=== PATIENT | female | born 1950 | race Caucasian/White ===

== ENCOUNTER 2017-12-31 11:01 | Outpatient (CLI) | payer MEDICARE, OTHER ==
--- NOTE | 2017-12-31 12:28 | RAD ---
CHEST TWO VIEWS: History: Dyspnea. Comparison: 12-03-16 FINDINGS: Cardiac silhouette and pulmonary vasculature are unremarkable. Mediastinum is midline with aortic yessenia cifications. Lungs are hyperinflated with flattening of each hemidiaphragm. No lobar consolidation, p neumothorax or pleural fluid. IMPRESSION: 1. COPD. Atherosclerosis. 2. Chronic type findings are stable. POS: TPC
== END 2017-12-31 11:02 | disposition home or self-care (01) ==
LOC: RAD 11:01
PROVIDERS: ATTEND Internal Medicine Critical Care Medicine
DX: R06.00 Dyspnea, unspecified (principal); J44.9 Chronic obstructive pulmonary disease, unspecified; I70.90 Unspecified atherosclerosis
CPT/HCPCS: 71046

== ENCOUNTER 2019-01-23 11:58 | Observation (INO) | payer MEDICARE, OTHER ==
[~2019-01-23 11:58] MED LIST: ISOVUE-370 76%-LOCM 1 ML ONE
[2019-01-23 12:31] LABS: #Basophils 0.1 thou/uL (0.0-0.2); #Eosinphils 0.1 thou/uL (0.0-0.7); #Lymphocytes 2.4 thou/uL (1.20-3.40); #Neutrophils 8.1 thou/uL (1.40-6.50); %Basophils 0.7 % (0.0-1.0); %Eosinophils 0.8 % (0.0-10.0); %Lymphocytes 20.4 % (21.0-51.0); %Monocytes 8.4 % (0.0-10.0); %Neutrophils 69.7 % (42.0-75.0); Hemoglobin 16.2 g/dL (12.0-16.0); Mean Corpuscular HGB CONC 33.2 g/dL (32.0-36.0); Mean Corpuscular Hemoglobin 31.9 pg (27.0-31.0); Mean Platelet Volume 7.5 fL (7.4-10.4); Platelet Count 263 thou/uL (130-400); RBC Distribution Width 12.1 % (11.5-14.5); Red Blood Cell (RBC) Count 5.08 mill/uL (4.20-5.40); White Blood Cell (WBC) Count 11.7 thou/uL (4.8-10.8)
--- NOTE | 2019-01-23 12:35 | RAD ---
Exam: Chest one view HISTORY:Pain. Comparison: 11/07/2016 FINDINGS: Cardiac silhouette:Normal. Aorta: Atherosclerosis Pulmonary vessels: Normal Costophrenic angles: Clear LUNGS: Inflation. Chronic changes. No mass or consolidation. Pneumothorax: None Osseous abnormalities: None IMPRESSION: 1. Atherosclerosis. 2. Hyperinflation. COPD. 3. No acute cardiopulmonary process.
[2019-01-23] MEDS ORDERED: Morphine 4 MG/ML VIAL ONE (12:45)
[2019-01-23] MEDS ORDERED: Mag-Al 1200 mg/1200 mg/30 ML UDCUP ONE (12:45)
[2019-01-23] MEDS ORDERED: Lidocaine Viscous Sol 2% 15 ml UD Cup ONE (12:45)
[2019-01-23 12:52] LABS: ALT (SGPT) 28 U/L (8-55); AST (SGOT) 33 U/L (5-34); Albumin 4.8 g/dL (3.4-4.8); Alkaline Phosphatase 85 U/L (40-150); Anion Gap 16 mmol/L (10-20); BUN (Urea Nitrogen) 12 mg/dL (9.8-20.1); Bilirubin, Total 0.5 mg/dL (0.2-1.2); Calc. Creatinine Clearance 0 mL/min (70-130); Calcium 10.4 mg/dL (7.8-10.44); Carbon Dioxide 26 mmol/L (23-31); Chloride 95 mmol/L (98-107); Estimated GFR-MDRD 75; Globulin 2.2 g/dL (2.4-3.5); Glucose 99 mg/dL (80-115); Lipase 27 U/L (8-78); Potassium 4.4 mmol/L (3.5-5.1); Sodium 133 mmol/L (136-145)
--- NOTE | 2019-01-23 13:34 | CT ---
Exam: CT ANGIOGRAM OF THE THORACIC AORTA CT ANGIOGRAM OF THE ABDOMINAL AORTA CHEST CT WITH CONTRAST ABDOMEN CT WITH CONTRAST: TECHNIQUE: CT angiogram of the thoracic and abdominal aorta performed in the axial plane. Three-dimensional refo rmatted images are submitted for interpretation. FINDINGS: CHEST CT: No mediastinal mass, lymphadenopathy or hematoma. Heart size is within normal limits. Adequate contra st opacification of the pulmonary arterial system to the level of the lobar arteries. No filling defect to suggest thromboembolism No axillary lymphadenopathy Trachea and central bronchi are patent Right lung: Extensive emphysematous change. Patchy groundglass opacities may represent edema or infil trate. Subsegmental atelectasis and scarring is noted in the lower lobe. Left lung: Extensive emphysematous change. Patchy groundglass opacities may represent infiltrate. Sub segmental atelectasis and scarring is noted in the lingula and left lower lobe. No significant pleural fluid or pneumothorax. ABDOMEN CT: Appropriate arterial phase enhancement of the solid organs. Unremarkable gallbladder No mass, lymphadenopathy or free air/free fluid in the visualized mesentery. Limited enhancement kidneys. No obstructive uropathy Visualized alimentary canal is unremarkable. There are few fluid-filled loops of small bowel in the l eft hemiabdomen which are nonspecific. Fluid-filled bowel loops are at the upper limits of diameter. Visualized appendix is unremarkable. There is atherosclerosis in the visualized thoracic and abdominal aorta. The aortic root, ascending t horacic aorta, aortic knob and descending thoracic aorta have an overall normal caliber. No aneurysm or dissection, or paraaortic fat stranding. Visualized origins of the carotid arteries, left subclavian artery are unremarkable. There is mild prominence of the suprarenal abdominal aorta measuring 2.7 x 2.6 cm. There is no signif icant stenosis at the origin of the celiac artery, superior mesenteric artery or either renal artery ostium. Inferior mesenteric artery is difficult to appreciate. There is evidence of a bypass, incompletely evaluated at the aortic bifurcation. The [place] lumens are still opacified with contrast and have atherosclerosis. The bypass is opacified with contrast. IMPRESSION: 1. No acute abnormality in the chest or abdomen. 2. No evidence of aneurysmal dilatation of the visualized aorta. Atherosclerosis is identified. 3. Incompletely evaluated bypass at the aortic bifurcation. Transcribed Date/Time: 01/23/2019 2:26 PM
[2019-01-23] MEDS ORDERED: Aspirin Chewable 81 MG TAB ONE (14:06)
--- NOTE | 2019-01-23 15:06 | HP ---
DISCHARGE DISPOSITION: Dr. Johann Castorena. REASON FOR ADMISSION: Acute epigastric abdominal pain. HISTORY OF PRESENT ILLNESS: A 68-year-old female who has underlying history of hypertension, COPD, hypothyroidism, and dyslipidemia, who presented to emergency room with a complaint of epigastric abdominal pain. The patient reports that this morning when she woke up, she was experiencing epigastric abdominal pain, which was radiating to back. It was intermittent in nature, lasting for a few seconds to a minute and subsided by itself. Her intensity of pain is about 8/10 in intensity. This was started this morning when she was drinking coffee. She is occasionally taking ibuprofen for her pain. She denies any vomiting, but she was feeling nauseous. She denies any diarrhea, melena, or hematochezia. She denies any shortness of breath, palpitation, or dizziness. In the emergency room, morphine helped her pain. She was given a trial of GI cocktail, that did not improve her symptoms. In the emergency room, CT dissection protocol was ordered, which was negative for any acute process. Her routine blood test is also unremarkable. Her lipase is also normal. She denies any chronic dyspepsia symptoms. She denies any UTI symptoms. She denies any fever or chills. She denies any unusual food ingestion. She denies any bloating or gaseous feeling. She denies any abdominal distention. She denies any COPD flare-up. REVIEW OF SYSTEMS: CONSTITUTIONAL: Negative for weight loss or gain, ability to conduct usual activities. SKIN: Negative for rash, itching. EYES: Negative for double vision, pain. ENT/MOUTH: Negative for nose bleeding, neck stiffness, pain, tenderness. CARDIOVASCULAR: Negative for palpitations, dyspnea on exertion, orthopnea. RESPIRATORY: Negative for shortness of breath, wheezing, cough, hemoptysis, fever or night sweats. GASTROINTESTINAL: Negative for poor appetite, abdominal pain, heartburn, nausea, vomiting, constipation, or diarrhea. GENITOURINARY: Negative for urgency, frequency, dysuria, nocturia. MUSCULOSKELETAL: Negative for pain, swelling. NEUROLOGIC/PSYCHIATRIC: Negative for anxiety, depression. ALLERGY/IMMUNOLOGIC: Negative for skin rash, bleeding tendency. Please see my HPI for pertinent positives and negatives. All other review of systems reviewed and negative except as mentioned in HPI. PAST MEDICAL HISTORY: 1. COPD. 2. Hypothyroidism. 3. Hypertension. 4. Dyslipidemia. 5. Coronary artery disease. 6. History of AAA. PAST SURGICAL HISTORY: 1. AAA repair in 2013. 2. Bilateral cataract surgery. 3. Breast mass removal on the left side. PAST PSYCHIATRIC HISTORY: Reviewed and negative. SOCIAL HISTORY: The patient is an ex-smoker, she quit smoking a few years ago. She drinks alcohol occasionally. She denies any other illicit drug abuse. FAMILY HISTORY: No family history of coronary artery disease, stroke, or cancer. ALLERGIES: NO KNOWN DRUG ALLERGIES. CURRENT HOME MEDICATIONS: 1. Levothyroxine 88 mcg p.o. daily. 2. Lisinopril 5 mg p.o. daily. 3. Metoprolol tartrate 25 mg p.o. daily. 4. Lipitor 80 mg p.o. nightly. 5. Vitamin C 500 mg p.o. daily. 6. Fosamax 70 mg weekly. 7. Ventolin nebulization as needed. 8. DuoNeb q.12 h. 9. Breo Ellipta inhalation daily. EMERGENCY ROOM COURSE: The patient is given a trial of a GI cocktail, morphine, and aspirin. PHYSICAL EXAMINATION: VITAL SIGNS: Currently, blood pressure 124/81, pulse 83, respiratory rate 17, temperature 97.7, and saturation 94% on room air. Weight 57 kg. GENERAL: The patient is currently alert and awake, in mild distress due to pain. HEAD: Normocephalic and atraumatic. EYES: Pupils round and reactive to light. Extraocular muscles intact. ENT: Oropharynx within normal limits. Moist mucous membranes. No oral lesion. No pharyngeal erythema. No exudate. NECK: Supple. No thyromegaly. No carotid bruit. No jugular venous distention. LUNGS: Clear to auscultation without any rhonchi or rales. CARDIAC: S1 and S2 regular without any murmur. No gallop. No rub. ABDOMEN: The patient does have epigastric tenderness. No peritoneal sign. No Gonzalez sign. No abdominal distention. Bowel sounds present. No organomegaly. No mass. BACK: Unremarkable. No CVA tenderness. EXTREMITIES: Upper extremities; passive movement of all joints is normal. Lower extremities; no edema, good distal pulsation. SKIN: No skin rash. HEMATOLOGICAL SYSTEM: No lymphadenopathy. NEUROLOGIC: Nonfocal examination. SIGNIFICANT LABORATORY DATA: EKG showing normal sinus rhythm, nonspecific ST-T changes. Chest x-ray showing COPD changes, no acute cardiopulmonary process. CT dissection protocol came back negative. CBC; WBC 11.7, hemoglobin 16.2, and platelets 263. less than 0.010. Lipase 27. BMP; sodium 133, potassium 4.4, chloride 95, carbon dioxide 26, BUN 12, creatinine 0.76, glucose 99, and calcium 10.4. LFT; protein 7.0, albumin 4.8, alkaline phosphatase 85, AST 33, and ALT 28. ASSESSMENT AND PLAN: 1. Acute epigastric abdominal pain. This patient has epigastric pain, recurrent, spasmodic in nature, radiating to back. Her lipase is normal. She has negative CT dissection protocol. She does not have any obvious Gonzalez sign. She does not have any chronic dyspepsia symptoms or chronic nonsteroidal anti-inflammatory drug abuse. At this point, differential diagnosis is gastritis, maybe early pancreatitis or biliary colic. Underlying acute coronary syndrome needs to be excluded, but less likely given negative cardiac enzymes and negative EKG. We will do serial cardiac enzymes x3. We will obtain a right upper quadrant ultrasound. We will repeat lipase tomorrow. We will repeat liver function test tomorrow. If the patient's pain does not improve by tomorrow, then we will consider GI consultation for upper endoscopic evaluation. We will control her pain with morphine p.r.n. basis. We will also try simethicone p.r.n. basis along with Protonix 40 mg p.o. daily. 2. Hypertension. Continue lisinopril 5 mg p.o. daily and metoprolol tartrate 25 mg p.o. daily. 3. Dyslipidemia. Continue Lipitor 80 mg p.o. nightly. 4. Hypothyroidism. Continue Synthroid 88 mcg p.o. daily. 5. History of osteoporosis. The patient will continue Fosamax after discharge. 6. Chronic obstructive pulmonary disease without any exacerbation. We will continue DuoNeb q.6 h. and Dulera 2-puff inhalation b.i.d. 7. History of abdominal aortic aneurysm, currently stable. 8. Deep venous thrombosis prophylaxis, not needed because we are expecting discharge in 24 hours. 9. Gastrointestinal prophylaxis. Protonix 40 mg p.o. daily. 10. Code status. The patient is full code. The patient does not have any surrogate decision maker. DISPOSITION PLAN: Based on clinical course, we will keep as observation status and we will monitor while in hospital. Plan of care discussed with the patient in detail. Job ID: [id number]
[2019-01-23 16:05] LABS: Troponin I 0.014 ng/mL (< 0.028)
[2019-01-23] MEDS ORDERED: Calcium Carbonate 500 MG ChewTAB PO PRN (16:10)
[2019-01-23] MEDS ORDERED: Loperamide HCl 2 MG CAP PO PRN (16:10)
[2019-01-23] MEDS ORDERED: HYDROcodone/Acetaminophen 10/325 mg Tablet PO PRN (16:10)
[2019-01-23] MEDS ORDERED: Bisacodyl 5 MG TAB PO PRN (16:10)
[2019-01-23] MEDS ORDERED: Bisacodyl 10 MG SUPP PR PRN (16:10)
[2019-01-23] MEDS ORDERED: Acetaminophen 325 MG TAB PO PRN (16:10)
[2019-01-23] MEDS ORDERED: Senokot S 8.6-50 MG TAB PO PRN (16:10)
[2019-01-23] MEDS ORDERED: Morphine 4 MG/ML VIAL SLOW IVP PRN (16:10)
[2019-01-23] MEDS ORDERED: Ondansetron PF 4 MG/2 ML Vial IVP PRN (16:10)
[2019-01-23] MEDS ORDERED: Simethicone Chewable 80 MG TAB PO PRN (16:10)
[2019-01-23] MEDS ORDERED: Dicyclomine 20 MG TAB PO PRN (16:10)
[2019-01-23] MEDS ORDERED: Zolpidem Tartrate 5 MG TAB PO PRN (16:10)
[2019-01-23 16:21] VITALS: BMI 23.8
--- NOTE | 2019-01-23 18:40 | ULT ---
US Gallbladder RUQ: 01/23/2019 4:10 PM CLINICAL HISTORY: Epigastric abdominal pain. STUDY: Limited right upper quadrant ultrasound of abdomen. COMPARISON: None. FINDINGS: Liver: Size: Normal. Echogenicity: Normal. Contour: Smooth. Mass: None. Bile ducts: No intrahepatic or extrahepatic biliary dilatation. Common bile duct measures 3 mm. Gallbladder: Normal. Pancreas: Not well visualized Right kidney: No pelvicalyceal dilatation. Right kidney measuring 9.1 cm in length. IMPRESSION: Unremarkable exam.
[2019-01-23] MEDS: Mometasone/Formoterol 120 PUFF INHALER INH SCH (19:29)
[2019-01-23 20:02] LABS: Troponin I Less than 0.010 ng/mL (< 0.028)
[2019-01-23] MEDS ORDERED: Atorvastatin Calcium 40 MG TAB PO SCH (21:00)
[2019-01-23] MEDS: Ondansetron ODT 4 MG TAB PO PRN (21:14)
[2019-01-24] MEDS ORDERED: Levothyroxine Sodium 88 MCG TAB PO SCH (06:00)
[2019-01-24] MEDS: Mometasone/Formoterol 120 PUFF INHALER INH SCH (06:48)
[2019-01-24 07:29] LABS: #Eosinphils 0.1 thou/uL (0.0-0.7); #Lymphocytes 1.7 thou/uL (1.20-3.40); #Monocytes 0.9 thou/uL (0.11-0.59); #Neutrophils 5.5 thou/uL (1.40-6.50); %Basophils 0.4 % (0.0-1.0); %Lymphocytes 20.5 % (21.0-51.0); %Monocytes 10.6 % (0.0-10.0); %Neutrophils 67.5 % (42.0-75.0); Hemoglobin 14.7 g/dL (12.0-16.0); Mean Corpuscular Hemoglobin 31.6 pg (27.0-31.0); Mean Corpuscular Volume 95.6 fL (78.0-98.0); Mean Platelet Volume 7.8 fL (7.4-10.4); Platelet Count 245 thou/uL (130-400); Red Blood Cell (RBC) Count 4.66 mill/uL (4.20-5.40); White Blood Cell (WBC) Count 8.2 thou/uL (4.8-10.8)
[2019-01-24 07:35] LABS: ALT (SGPT) 25 U/L (8-55); AST (SGOT) 26 U/L (5-34); Albumin 4.2 g/dL (3.4-4.8); Alkaline Phosphatase 63 U/L (40-150); Anion Gap 12 mmol/L (10-20); BUN (Urea Nitrogen) 9 mg/dL (9.8-20.1); Bilirubin, Total 0.6 mg/dL (0.2-1.2); Calc. Creatinine Clearance 67 mL/min (70-130); Calcium 9.4 mg/dL (7.8-10.44); Carbon Dioxide 27 mmol/L (23-31); Chloride 99 mmol/L (98-107); Estimated GFR-MDRD 80; Globulin 2.2 g/dL (2.4-3.5); Glucose 89 mg/dL (80-115); Lipase 22 U/L (8-78); Protein, Total 6.4 g/dL (6.0-8.3); Sodium 134 mmol/L (136-145)
[2019-01-24 08:13] VITALS: BP 137/63; TEMP 97.5
[2019-01-24] MEDS: Ondansetron ODT 4 MG TAB PO PRN (08:17)
[2019-01-24] MEDS ORDERED: Aspirin Chewable 81 MG TAB PO SCH (09:00)
[2019-01-24] MEDS ORDERED: Ascorbic Acid 500 mg Chewable Tablet PO SCH (09:00)
[2019-01-24] MEDS ORDERED: Lisinopril 5 MG TAB PO SCH (09:00)
[2019-01-24] MEDS ORDERED: Metoprolol Tartrate 25 MG TAB PO SCH (09:00)
--- NOTE | 2019-01-24 10:10 | PDOC.PN ---
- Subjective Encounter Start Date: 01/24/19 Encounter Start Time: 07:40 -: old records requested/rev pt has nausea, epigastric pain resolved, no dyspnea - Objective Resuscitation Status - Order Detail: 01/23/19 14:40 Resuscitation Status Routine Resuscitation Status: FULL: Full Resuscitation MAR Reviewed: Yes Vital Signs & Weight: Vital Signs (12 hours) Temp Pulse Resp BP Pulse Ox 01/24/19 08:17 80 01/24/19 07:42 97.5 F L 80 12 137/63 92 L 01/24/19 06:48 117 H 18 01/24/19 06:25 118 H 18 01/24/19 05:00 98.1 F 85 20 109/59 L 93 L 01/23/19 22:43 95 14 91 L Weight Weight 127 lb 9.6 oz I&O: 01/23/19 01/24/19 01/25/19 06:59 06:59 06:59 Intake Total 1160 Output Total 1200 Balance -40 Result Diagrams: 01/24/19 06:43 01/24/19 06:43 Radiology Reviewed by me: Yes (US abdomen is normal) EKG Reviewed by me: Yes (nsr) Phys Exam - Physical Examination Constitutional: NAD HEENT: PERRLA, moist MMs, sclera anicteric Neck: no JVD, supple Respiratory: no wheezing, no rales, no rhonchi Cardiovascular: RRR, no significant murmur, no rub Gastrointestinal: soft, non-tender, no distention, positive bowel sounds Musculoskeletal: no edema, pulses present Neurological: non-focal, normal sensation, moves all 4 limbs Lymphatic: no nodes Psychiatric: normal affect, A&O x 3 Skin: no rash, normal turgor Dx/Plan (1) Epigastric abdominal pain Code(s): R10.13 - EPIGASTRIC PAIN Status: Resolved (2) CAD (coronary artery disease) Code(s): I25.10 - ATHSCL HEART DISEASE OF [place] CORONARY ARTERY W/O ANG PCTRS Status: Chronic (3) Hypertension Code(s): I10 - ESSENTIAL (PRIMARY) HYPERTENSION Status: Chronic (4) Dyslipidemia Code(s): E78.5 - HYPERLIPIDEMIA, UNSPECIFIED Status: Chronic (5) COPD (chronic obstructive pulmonary disease) Status: Chronic - Plan cont current plan of care * medication reviewed as below * symptomatic treatment * stable for discharge later on today * see discharge toni. Review of Systems - Review of Systems ENT: negative: Ear Pain, Ear Discharge, Nose Pain, Nose Discharge, Nose Congestion, Mouth Pain, Mouth Swelling, Throat Pain, Throat Swelling, Other Respiratory: negative: Cough, Dry, Shortness of Breath, Hemoptysis, SOB with Excertion, Pleuritic Pain, Sputum, Wheezing Cardiovascular: negative: chest pain, palpitations, orthopnea, paroxysmal nocturnal dyspnea, edema, light headedness, other Gastrointestinal: Nausea. negative: Vomiting, Abdominal Pain, Diarrhea, Constipation, Melena, Hematochezia, Other Genitourinary: negative: Dysuria, Frequency, Incontinence, Hematuria, Retention , Other Musculoskeletal: negative: Neck Pain, Shoulder Pain, Arm Pain, Back Pain, Hand Pain, Leg Pain, Foot Pain, Other Skin: negative: Rash, Lesions, Braulio, Bruising, Other - Medications/Allergies Allergies/Adverse Reactions: Allergies Allergy/AdvReac Type Severity Reaction Status Date / Time No Known Allergies Allergy Verified 01/23/19 16:21 Medications: Current Medications Acetaminophen (Tylenol) 650 mg PO Q4H PRN PRN Reason: Headache/Fever/Mild Pain (1-3) Last Admin: 01/24/19 08:16 Dose: 650 mg Hydrocodone Bitart/Acetaminophen (Goddard 10/325) 1 tab PO Q4H PRN PRN Reason: Moderate Pain (4-6) Last Admin: 01/23/19 21:13 Dose: 1 tab Albuterol/Ipratropium (Duoneb) 3 ml NEB [id number] [facility] Last Admin: 01/24/19 06:25 Dose: 3 ml Ascorbic Acid (Vitamin C) 500 mg PO DAILY [facility] Last Admin: 01/24/19 08:16 Dose: 500 mg Aspirin (Aspirin Chewable) 81 mg PO DAILY [facility] Last Admin: 01/24/19 08:17 Dose: 81 mg Atorvastatin Calcium (Lipitor) 80 mg PO HS [facility] Last Admin: 01/23/19 21:13 Dose: 80 mg Bisacodyl (Dulcolax) 10 mg PO DAILYPRN PRN PRN Reason: Constipation Bisacodyl (Dulcolax) 10 mg DC DAILYPRN PRN PRN Reason: Constipation Calcium Carbonate (Tums) 1,000 mg PO Q4H PRN PRN Reason: Heartburn or Indigestion Dicyclomine HCl (Bentyl) 20 mg PO QID PRN PRN Reason: GI Cramping Levothyroxine Sodium (Synthroid) 88 mcg PO 0600 [facility] Last Admin: 01/24/19 05:10 Dose: 88 mcg Lisinopril (Zestril) 5 mg PO DAILY [facility] Last Admin: 01/24/19 08:17 Dose: 5 mg Loperamide HCl (Imodium) 2 mg PO PRN PRN PRN Reason: Diarrhea/Loose Stools Metoprolol Tartrate (Lopressor) 25 mg PO DAILY [facility] Last Admin: 01/24/19 08:17 Dose: 25 mg Mometasone Furoate/Formoterol Fumar (Dulera 200 Mcg/5 Mcg Inhaler) 2 puff INH BID-RT [facility] Last Admin: 01/24/19 06:48 Dose: 2 puff Morphine Sulfate (Morphine) 2 mg SLOW IVP Q2H PRN PRN Reason: Pain Last Admin: 01/23/19 16:49 Dose: 2 mg Ondansetron HCl (Zofran Odt) 4 mg PO Q6H PRN PRN Reason: Nausea/Vomiting Last Admin: 01/24/19 08:17 Dose: 4 mg Ondansetron HCl (Zofran) 4 mg IVP Q6H PRN PRN Reason: Nausea/Vomiting Pantoprazole Sodium (Protonix) 40 mg PO DAILY [facility] Last Admin: 01/24/19 08:17 Dose: 40 mg Senna/Docusate Sodium (Senokot S) 2 tab PO BID PRN PRN Reason: Constipation Simethicone (Mylicon Chewable) 80 mg PO PCHS PRN PRN Reason: Gas Pain Zolpidem Tartrate (Ambien) 5 mg PO HSPRN PRN PRN Reason: Insomnia
--- NOTE | 2019-01-24 11:54 | DIS ---
DATE OF ADMISSION: 01/23/2019 DATE OF DISCHARGE: 01/24/2019 PRIMARY CARE PHYSICIAN: Johann Castorena MD DISCHARGE DISPOSITION: Home. PRIMARY DISCHARGE DIAGNOSIS: Acute epigastric abdominal pain, improved. SECONDARY DISCHARGE DIAGNOSES: Coronary artery disease, chronic obstructive pulmonary disease, hypertension, and dyslipidemia. PRIMARY PROCEDURE/OPERATION: None. RADIOLOGICAL INVESTIGATION: Chest x-ray normal. CT dissection negative for any acute process. Abdominal ultrasound normal. SIGNIFICANT LABORATORY DATA: WBC 8.2, hemoglobin 14.7, and platelet 245. Sodium 134, creatinine 0.72. LFT normal. Cardiac enzyme negative. Lipase 22. DISCHARGE MEDICATIONS: 1. Ventolin inhaler q.4 hourly p.r.n. 2. Ventolin nebulization q.6 hourly. 3. Fosamax 70 mg every week. 4. Vitamin C 500 mg daily. 5. Lipitor 80 mg at bedtime. 6. Symbicort one puff inhalation b.i.d. 7. Multi mineral one tablet twice daily. 8. Vitamin D3 2000 units p.o. at bedtime. 9. Breo Ellipta one inhalation daily. 10. Atrovent HFA q.i.d. 11. Synthroid 88 mcg p.o. daily. 12. Lisinopril 5 mg daily. 13. Lopressor 25 mg daily. 14. Multivitamin one tablet p.o. daily. New medications: 1. Protonix 40 mg p.o. daily. 2. Simethicone 80 mg p.o. p.c. at bedtime. 3. Zofran 4 mg q.6 hourly p.r.n. 4. Bentyl 20 mg q.i.d. p.r.n. CONTRAINDICATION: None. CODE STATUS: Full code. INPATIENT CONSULT: None. ALLERGIES: NO KNOWN DRUG ALLERGIES. DISCHARGE PLAN: Post hospital, the patient will follow up with primary care physician and primary care physician will decide to give referral to nuclear physician if the patient has persistent symptoms. HOSPITAL COURSE: A 68-year-old female with above-mentioned medical problem, who was admitted by me. Please see my HPI for further details. She presented to emergency room with acute onset of epigastric abdominal pain, which was radiating to back. She was also feeling nausea, as this patient has previous history of AAA repair and that is why CT dissection protocol was done in the emergency room, which was negative for any acute process. The patient's all laboratory parameters were normal. She did not have any Gonzalez sign, but she was complaining of epigastric abdominal pain and that is why we did ultrasound gallbladder, which was normal. Her lipase is also normal. The patient does not have any clinically any alarming feature for upper endoscopy to be done. Her cardiac enzyme negative. Her telemetry remained unremarkable. At this point, with narcotic therapy, the patient's pain completely improved. Above-mentioned new medication prescribed for symptoms management and subsequently, she will follow up with primary care physician. The patient is seen and examined at bedside today. Please see my progress note from today for further detail. During this admission, we have ruled out pancreatic, gallbladder, cardiac, and vascular pathology for her abdominal pain, clinically suspecting maybe mild gastritis and that is why we are giving therapeutic trial and if the patient has persistent symptoms, then she can follow up with nuclear physician for upper endoscopic evaluation. At this point, she does not have any alarming feature to do upper endoscopy and the patient agreed with this plan as well. Job ID: [id number]
== END 2019-01-24 11:53 | disposition home or self-care (01) ==
LOC: ERS 11:58 → 2SW 16:04
PROVIDERS: ADMIT Internal Medicine; ATTEND Internal Medicine
DX: R10.13 Epigastric pain (principal); I10 Essential (primary) hypertension; J44.9 Chronic obstructive pulmonary disease, unspecified; E03.9 Hypothyroidism, unspecified; E78.5 Hyperlipidemia, unspecified; I25.10 Atherosclerotic heart disease of native coronary artery without angina pectoris; Z79.899 Other long term (current) drug therapy; Z87.891 Personal history of nicotine dependence
CPT/HCPCS: 71045; 71275; 76705; 80053 ×2; 83690 ×2; 84484 ×2; 85025 ×2; 93005; 94640 ×5; 96374; 96376; 99285; G0378 ×2; 36415; J2270; J7620; Q0162; Q9966

== ENCOUNTER 2019-03-30 09:03 | Outpatient (CLI) | payer MEDICARE, OTHER ==
--- NOTE | 2019-03-30 09:18 | RAD ---
EXAM: Chest 2 views: HISTORY: Dyspnea COMPARISON: 12/31/2017 FINDINGS: There is a normal-sized cardiomediastinal silhouette. Atherosclerotic calcifications are seen in the aorta. There is no evidence of consolidation, mass, or pleural effusion. The bones are unremarkable. IMPRESSION: No evidence of acute cardiopulmonary disease
== END 2019-03-30 09:04 | disposition home or self-care (01) ==
LOC: RAD 09:03
PROVIDERS: ATTEND Internal Medicine Critical Care Medicine
DX: R06.00 Dyspnea, unspecified (principal)
CPT/HCPCS: 71046

== ENCOUNTER 2019-08-31 07:57 | Inpatient (IN) | payer MEDICARE, OTHER ==
[2019-08-31] MEDS ORDERED: methylPREDNISolone Sod Succ/PF 125 MG/2 ML VIAL ONE (08:29)
[2019-08-31] MEDS ORDERED: Azithromycin 500 MG VIAL ONE (08:29)
[2019-08-31] MEDS ORDERED: cefTRIAXone\\ROCEPHIN 2 GM VIAL ONE (08:29)
[2019-08-31] MEDS ORDERED: Morphine 4 MG/ML VIAL ONE (08:29)
[2019-08-31 08:39] LABS: Hemoglobin 15.7 g/dL (12.0-16.0); Mean Corpuscular HGB CONC 33.4 g/dL (32.0-36.0); Mean Corpuscular Hemoglobin 31.8 pg (27.0-31.0); Mean Corpuscular Volume 95.3 fL (78.0-98.0); Platelet Count 219 thou/uL (130-400); RBC Distribution Width 12.5 % (11.5-14.5); Red Blood Cell (RBC) Count 4.92 mill/uL (4.20-5.40); White Blood Cell (WBC) Count 25.9 thou/uL (4.8-10.8)
[2019-08-31 09:00] LABS: ALT (SGPT) 25 U/L (8-55); AST (SGOT) 30 U/L (5-34); Alkaline Phosphatase 69 U/L (40-110); Anion Gap 17 mmol/L (10-20); BUN (Urea Nitrogen) 10 mg/dL (9.8-20.1); Bilirubin, Total 0.9 mg/dL (0.2-1.2); Calc. Creatinine Clearance 0 mL/min (70-130); Carbon Dioxide 21 mmol/L (23-31); Chloride 103 mmol/L (98-107); Estimated GFR-MDRD 78; Glucose 118 mg/dL (80-115); Potassium 4.5 mmol/L (3.5-5.1); Sodium 136 mmol/L (136-145)
--- NOTE | 2019-08-31 09:01 | RAD ---
PORTABLE CHEST: HISTORY: Cough. COMPARISON: An 03/30/2019 study. FINDINGS: Heart size is within normal limits. There are atherosclerotic changes of the aorta. There is a pneu kim-appearing infiltrate in the right lung base. IMPRESSION: 1. Chronic obstructive pulmonary disease changes. 2. Infiltrative changes in the right lung base. POS: TPC
[2019-08-31] MEDS ORDERED: Aspirin Chewable 81 MG TAB ONE (09:24)
[2019-08-31] MEDS ORDERED: Fentanyl 100 MCG/2 ML VIAL ONE (09:39)
[2019-08-31 09:41] LABS: Band 29 % (5-11); Eosinophils 1 % (0-10); Lymphocytes 8 % (21-51); MDiff Complete? YES; Monocytes 4 % (0-10); Neutrophil 58 % (42-75); Platelet Morphology Comment Appears Adequate; Polychromasia SLIGHT = 2-3 cells (100X) (0-2/hpf); Reflex for Review?? NO; Vacuoles MODERATE
--- NOTE | 2019-08-31 10:39 | CT ---
CT PULMONARY ANGIOGRAM WITH IV CONTRAST AND 3D POST PROCESSING: HISTORY: Chest pain, shortness of breath. FINDINGS: There is good contrast opacification of the pulmonary arterial vasculature without filling defects to suggest pulmonary embolism. The thoracic aorta is well opacified. Vascular calcifications are pres ent. No evidence of thoracic aortic aneurysm or dissection. No pleural or pericardial effusions are identified. There is peripheral consolidation in the right l ower lobe. Degenerative changes are present in the spine. IMPRESSION: 1. No CT evidence of pulmonary embolism. 2. Findings suspicious for right lower lobe pneumonia. POS: OFF
[2019-08-31 11:10] LABS: Bilirubin Negative (Negative); Blood, Urine Negative (Negative); Clarity Clear (Clear); Glucose, Urine (Dipstick) Normal (Negative); Leukocyte Negative Leu/uL (Negative); Nitrite Negative (Negative); Protein, Urine (Dipstick) 10 mg/dL (Neg-Trace); Urobilinogen Normal mg/dL (Less than 2)
[2019-08-31 11:27] LABS: Troponin I 0.014 ng/mL (< 0.028)
[2019-08-31 11:30] LABS: Actual Bicarbonate (HCO3a) 19.6 mEq/L (22-28); Analyzer IN Cardio ER; Base Excess (BEa) -4.8 mEq/L (-2.0 to +3.0); CO2 Tension 34.5 mmHg (35.0-45.0); Calcium, Ionized 1.05 mmol/L (1.12-1.30); Carboxyhemoglobin (COHb) 0.5 gm% (0.0-3.0); Hemoglobin (Hb) 14.2 g/dL (12.0-16.0); O2 Tension (PaO2) 78.3 mmHg (> 70.0); Potassium - ABG Lab 3.66 mmol/L (3.70-5.30); pH, Arterial 7.37 (7.35-7.45)
[2019-08-31 11:32] LABS: Puncture Site LBA
[2019-08-31 11:35] LABS: ALV-art Gradient 78.215 (0-20)
[2019-08-31] MEDS ORDERED: Albuterol Sulfate 2.5 mg/3 ml Neb ONE ×2 (11:37→11:45)
[2019-08-31] MEDS ORDERED: Loratadine 10 MG TAB PO PRN (14:04)
[2019-08-31] MEDS ORDERED: Bisacodyl 10 MG SUPP PR PRN (14:04)
[2019-08-31] MEDS ORDERED: hydrALAZINE 20 MG/ML VIAL SLOW IVP PRN (14:04)
[2019-08-31] MEDS ORDERED: Benzonatate 100 MG CAP PO PRN (14:04)
[2019-08-31] MEDS ORDERED: Artificial Tears 18 DROP/0.9 ML EA EYE PRN (14:04)
[2019-08-31] MEDS ORDERED: Loperamide HCl 2 MG CAP PO PRN (14:04)
[2019-08-31] MEDS ORDERED: Metoclopramide HCl 10 MG/2 ML VIAL IVP PRN (14:04)
[2019-08-31] MEDS ORDERED: Senokot S 8.6-50 MG TAB PO PRN (14:04)
--- NOTE | 2019-08-31 14:46 | HP ---
PRIMARY CARE PHYSICIAN: Dr. Johann Castorena. REASON FOR ADMISSION: Acute respiratory failure with hypoxia, right lower lobe pneumonia, COPD exacerbation, sepsis. HISTORY OF PRESENT ILLNESS: A 69-year-old female, who has underlying history of COPD, who presented to emergency room with increasing shortness of breath. The patient reports that she has chronic shortness of breath. The patient does not require any oxygen at home. The patient reports that her COPD is well controlled with her home nebulizer therapy and inhalers. The patient is following Dr. Mcneil as an outpatient basis. The patient was fine up until yesterday and when symptoms started with chills, nausea, and increasing shortness of breath. The patient was having pleuritic chest pain on the right side. Whenever she was taking deep breaths, she was hurting in her right side of the chest and she was having cough productive of yellowish white sputum. She denies any hemoptysis. She denies any recent travel or sick exposure. She denies any flu-like illness. When the patient came to emergency room, she was hypoxic, tachypneic, and tachycardic and routine blood test showed leukocytosis with left shift. The patient was meeting sepsis criteria. The patient was requiring BiPAP to maintain saturation. Her chest x-ray was consistent with pneumonia. CT angiography was negative for PE. Subsequently, we decided to keep this patient in the hospital in [facility] for close monitoring. The patient denies any diarrhea, constipation, melena, or hematochezia. She denies any chest pain on exertion, palpitation or syncope. EMERGENCY ROOM COURSE: The patient was treated with albuterol nebulization, DuoNeb nebulization, fentanyl 25 mcg, aspirin 162 mg, azithromycin 500 mg, morphine 4 mg, Solu-Medrol 125 mg, Rocephin 2 g and two times DuoNeb therapy as well and IV fluid. REVIEW OF SYSTEMS: CONSTITUTIONAL: Negative for weight loss or gain, ability to conduct usual activities. SKIN: Negative for rash, itching. EYES: Negative for double vision, pain. ENT/MOUTH: Negative for nose bleeding, neck stiffness, pain, tenderness. CARDIOVASCULAR: Negative for palpitations, dyspnea on exertion, orthopnea. RESPIRATORY: Negative for shortness of breath, wheezing, cough, hemoptysis, fever or night sweats. GASTROINTESTINAL: Negative for poor appetite, abdominal pain, heartburn, nausea, vomiting, constipation, or diarrhea. GENITOURINARY: Negative for urgency, frequency, dysuria, nocturia. MUSCULOSKELETAL: Negative for pain, swelling. NEUROLOGIC/PSYCHIATRIC: Negative for anxiety, depression. ALLERGY/IMMUNOLOGIC: Negative for skin rash, bleeding tendency. Please see my HPI for pertinent positives and negatives. All other review of systems reviewed and negative except as mentioned in HPI. PAST MEDICAL HISTORY: Hypertension, dyslipidemia, hypothyroidism, COPD, coronary artery disease, history of AAA. PAST SURGICAL HISTORY: Bilateral cataract surgery, breast mass removal on the left side, AAA repair in 2013. PAST PSYCHIATRIC HISTORY: Reviewed and negative. SOCIAL HISTORY: The patient is ex-smoker. She quit smoking few years ago. She drinks alcohol occasionally. She denies any other illicit drug abuse. FAMILY HISTORY: No strong family history of premature coronary artery disease, stroke, or cancer. ALLERGIES: NO KNOWN DRUG ALLERGY. CURRENT HOME MEDICATION: 1. Levothyroxine 88 mcg p.o. daily. 2. Lisinopril 5 mg daily. 3. Metoprolol 25 mg daily. 4. Lipitor 80 mg daily. 5. Vitamin C 500 mg p.o. daily. 6. Fosamax 70 mg every week. 7. Ventolin inhaler as needed. 8. DuoNeb q.6h hourly as needed. 9. Breo Ellipta inhalation daily. FAMILY HISTORY: No strong family history of premature coronary artery disease, stroke, or cancer. ALLERGIES: NO KNOWN DRUG ALLERGIES. PHYSICAL EXAMINATION: VITAL SIGNS: On arrival, blood pressure 137/63, pulse 128, respiratory rate 27, temperature 98, saturation 85% on room air. Weight 55.7 kg. GENERAL: The patient is currently alert, awake, no obvious acute distress. HEENT: Head; normocephalic, atraumatic. Eyes; pupils round, reactive to light. Extraocular muscle intact. ENT, oropharynx within normal limits. Moist mucous membranes. No oral lesion. No pharyngeal erythema. No exudate. NECK: Supple. No JVD. No meningeal signs of irritation. LUNGS: Bilateral end-expiratory wheezing heard. Right lower lobe rales noted. Tachypnea noted. No accessory muscles of respiration in use. CARDIAC: S1, S2 regular. Tachycardia. No murmur. No gallop. No rub. ABDOMEN: Soft, bowel sounds present, nontender, nondistended. No organomegaly. No mass. No suprapubic tenderness. BACK: Unremarkable. No CVA tenderness. EXTREMITIES: Upper extremities, passive movement of all joints are normal. Lower extremity, no edema. Good distal pulsation. No calf tenderness. SKIN: No skin rash. HEMATOLOGIC: No lymphadenopathy. PSYCHIATRIC: Normal affect. NEUROLOGIC: Nonfocal examination. SIGNIFICANT LABORATORY DATA: CBC; WBC 25.9, hemoglobin 15.7, platelet 219 with bandemia. ABGs; pH 7.37, CO2 of 34.5, bicarb 19.6, O2 of 78.3, saturation 95.1. BMP: Sodium 136, potassium 4.5, chloride 103, carbon dioxide 21, BUN 10, creatinine 0.74, glucose 118, calcium 9.0 LFT: AST 30, ALT 25, alkaline phosphatase 69, albumin 4.0: BNP 75.6. Troponin negative x2. Lactic acid 2.2. Urinalysis unremarkable. CT angiography, negative for PE, but findings consistent with right lower lobe pneumonia. Chest x-ray consistent with COPD changes, infiltrative changes in right lung base. EKG showing sinus tachycardia, nonspecific ST-T changes. ASSESSMENT AND PLAN: Impression: 1. Acute respiratory failure with hypoxia. 2. Sepsis with acute organ dysfunction. 3. Right lower lobe pneumonia, suspected from streptococcus. 4. Chronic obstructive pulmonary disease exacerbation. 5. Hypertension. 6. Dyslipidemia. 7. Hypothyroidism. 8. Osteoporosis. PLAN: The patient will require IMCU admission, the patient will need BiPAP and we will try to wean off BiPAP as tolerated, the patient has underlying COPD exacerbation and that is why we will continue with Solu-Medrol 40 mg IV q.6 hourly, we will continue with broad-spectrum antibiotic therapy, Mucinex 600 mg twice daily. Pulmonary group will be consulted. We will continue gentle IV fluid with NS at 75 mL/h. We will continue cefepime and azithromycin. Dulera two puff inhalation b.i.d. The patient's home medication will be reconciled. We will repeat labs tomorrow. DVT prophylaxis, Lovenox 40 mg subcu daily. GI prophylaxis, Pepcid 20 mg p.o. or IV b.i.d. CODE STATUS: The patient is full code. DISPOSITION PLAN: Based on clinical course, we are expecting the patient's stay in hospital more than 2 midnights. Plan of care discussed with the patient in detail in the emergency room. Job ID: [id number]
[2019-08-31] MEDS ORDERED: Magnesium 2 GM/50 ML 2 GM in Premix Bag 1 BAG IVPB SCH (15:15)
[2019-08-31 15:42] LABS: Troponin I 0.012 ng/mL (< 0.028)
[2019-08-31] MEDS: Morphine 4 MG/ML VIAL SLOW IVP PRN ×2 (15:50→21:13)
[2019-08-31] MEDS: Sodium Chloride 0.9% 1,000 ML IV SCH (15:50)
[2019-08-31] MEDS ORDERED: Iopamidol-370 76% 500 ML 1 ML ONE (16:12)
[2019-08-31] MEDS: methylPREDNISolone Sod Succ 40 MG VIAL IVP SCH (18:18)
[2019-08-31] MEDS: Mometasone/Formoterol 120 PUFF INHALER INH SCH (18:53)
[2019-08-31] MEDS: guaiFENesin ER 600 MG TAB PO SCH (21:12)
[2019-08-31] MEDS: Cefepime 2 GM in Sodium Chloride 0.9% 100 ML IVPB SCH (21:12)
[2019-08-31] MEDS: Famotidine 20 MG TAB PO SCH (21:13)
[2019-08-31] MEDS ORDERED: methylPREDNISolone Sod Succ 40 MG VIAL IVP SCH (22:00)
[2019-08-31] MEDS: Famotidine/PF 20 mg/2ml Vial SLOW IVP SCH (22:41)
[2019-09-01] MEDS: methylPREDNISolone Sod Succ 40 MG VIAL IVP SCH ×4 (00:36→17:18)
--- NOTE | 2019-09-01 01:45 | CON ---
DATE OF CONSULTATION: 08/31/2019 HISTORY OF PRESENT ILLNESS: Ms. Sidhu is a pleasant 69-year-old female, followed for years in my clinic. She has underlying chronic obstructive pulmonary disease. She actually had a surprisingly acute onset of respiratory distress combined with some nausea and chills yesterday. She developed severe pleurisy. She subsequently presented to the hospital and was admitted with a diagnosis of pneumonia. PAST MEDICAL HISTORY: Remarkable for: 1. Chronic obstructive pulmonary disease. 2. She was last hospitalized here in January of this year with abdominal discomfort. 3. History of coronary artery disease. 4. History of hypertension. 5. History of lipid disorder. 6. History of PFT showing a best FEV1 of 590 mL in 2017. FAMILY HISTORY: Negative for lung disease in early age. SOCIAL HISTORY: She is not smoking. She is not a daily drinker. REVIEW OF SYSTEMS: Ten point review of systems completed, otherwise negative. She says she is feeling a little bit better, but she is still short of breath. I have explained to her that she can go on and off her BiPAP. If she starts getting a little tired, wants to go to sleep and she can put her BiPAP back on. She wanted to get off when I was in the room and she did okay from a work of breathing standpoint with just 2 L nasal cannula. PHYSICAL EXAMINATION: VITAL SIGNS: She is afebrile. Heart rates in the 90s, blood pressure is 124/ 79. HEENT: Pupils are equal. Sclerae are anicteric. NECK: Supple. No lymphadenopathy. LUNGS: Remarkable for diffuse wheezes. HEART: Regular rhythm. S1 and S2 are normal. ABDOMEN: Soft and nontender. EXTREMITIES: Without clubbing, cyanosis, or edema. NEUROLOGICAL: Grossly nonfocal. LABORATORY DATA: White count 25.9, hemoglobin 15.7, and 29% bands on her peripheral smear. Sodium 136, potassium 4.5, chloride 103, bicarb 21, BUN 10, creatinine 0.7. PH 7.37, CO2 34, PO2 78. Chest x-ray shows right lower lobe alveolar infiltrate , right where she has her pleuritic chest discomfort. IMPRESSION: 1. Pneumonia. 2. Underlying very severe chronic obstructive pulmonary disease. She is doing reasonably well at this point time, but she needs to remain in the intermediate care unit. There is no clear indication for intubation or ventilatory support, but BiPAP intermittently may be helpful until she starts feeling better. We will increase frequency of her nebulizer treatments. TIME SPENT: This is a 70-minute consult, with greater than 50% of the time spent on the unit coordinating care. Job ID: [id number] MTDD
[2019-09-01] MEDS: Sodium Chloride 0.9% 1,000 ML IV SCH ×2 (03:37→17:16)
[2019-09-01 03:41] LABS: #Lymphocytes 0.5 thou/uL (1.20-3.40); #Monocytes 0.3 thou/uL (0.11-0.59); #Neutrophils 15.7 thou/uL (1.40-6.50); %Basophils 0.2 % (0.0-1.0); %Eosinophils 0.1 % (0.0-10.0); %Lymphocytes 3.1 % (21.0-51.0); %Neutrophils 94.7 % (42.0-75.0); Hemoglobin 12.7 g/dL (12.0-16.0); Mean Corpuscular HGB CONC 33.4 g/dL (32.0-36.0); Mean Corpuscular Hemoglobin 31.5 pg (27.0-31.0); Mean Corpuscular Volume 94.4 fL (78.0-98.0); Mean Platelet Volume 7.6 fL (7.4-10.4); Platelet Count 177 thou/uL (130-400); RBC Distribution Width 12.3 % (11.5-14.5); Red Blood Cell (RBC) Count 4.01 mill/uL (4.20-5.40); White Blood Cell (WBC) Count 16.6 thou/uL (4.8-10.8)
[2019-09-01 04:20] LABS: ALT (SGPT) 18 U/L (8-55); AST (SGOT) 15 U/L (5-34); Albumin 3.4 g/dL (3.4-4.8); Alkaline Phosphatase 61 U/L (40-110); Anion Gap 9 mmol/L (10-20); BUN (Urea Nitrogen) 7 mg/dL (9.8-20.1); Bilirubin, Total 0.2 mg/dL (0.2-1.2); Calc. Creatinine Clearance 78 mL/min (70-130); Calcium 7.8 mg/dL (7.8-10.44); Carbon Dioxide 23 mmol/L (23-31); Chloride 107 mmol/L (98-107); Estimated GFR-MDRD Greater than 90; Globulin 2.3 g/dL (2.4-3.5); Glucose 170 mg/dL (80-115); Potassium 3.7 mmol/L (3.5-5.1); Protein, Total 5.7 g/dL (6.0-8.3); Sodium 135 mmol/L (136-145)
[2019-09-01] MEDS: Levothyroxine Sodium 88 MCG TAB PO SCH (06:16)
[2019-09-01] MEDS: Mometasone/Formoterol 120 PUFF INHALER INH SCH ×2 (07:08→19:53)
[2019-09-01] MEDS: Famotidine/PF 20 mg/2ml Vial SLOW IVP SCH ×2 (08:11→22:16)
[2019-09-01] MEDS: Enoxaparin Sodium 40 MG/0.4 ML SYRINGE SC SCH (08:11)
[2019-09-01] MEDS: Cefepime 2 GM in Sodium Chloride 0.9% 100 ML IVPB SCH ×2 (08:11→21:38)
[2019-09-01] MEDS: guaiFENesin ER 600 MG TAB PO SCH ×2 (08:12→21:38)
[2019-09-01] MEDS: Famotidine 20 MG TAB PO SCH ×2 (08:12→21:38)
--- NOTE | 2019-09-01 09:40 | PRG ---
DATE OF SERVICE: 09/01/2019 SUBJECTIVE: The patient is seen and examined at the bedside. She has some nausea this morning. She received antiemetic/antinausea medications. She feels better. She denies any abdominal pain or diarrhea or constipation. OBJECTIVE: VITAL SIGNS: Blood pressure is 145/76, pulse is 99, respiratory rate is 27, and O2 saturation is 100% on O2. HEENT: Her head is atraumatic and normocephalic. Eyes are PERRLA. Sclerae are nonicteric. Oral mucosa is slightly dry. NECK: Supple. LUNGS: Right base with some mild wheezes and mild rales. HEART: S1 and S2 normal. No S3. No S4. ABDOMEN: Soft, nontender, and nondistended. Bowel sounds are present. No organomegaly. EXTREMITIES: No clubbing, cyanosis, or edema. NEUROLOGICAL: She follows my commands. She moves all 4 extremities. There are no any motor or sensory deficits. LABORATORY DATA: Labs showed white count of 16.6, hemoglobin of 12.7, hematocrit is 37.9, and platelet count is 177,000. Sodium of 135, potassium 3.3, chloride 107, CO2 of 23, BUN of 7, creatinine of 0.58, glucose 170, total protein 5.7, globulin 2.3 and the rest of chemistry within normal limits. Microbiology; two blood cultures, one urine culture negative at 24 hours. IMPRESSION: 1. Right lower lobe pneumonia. 2. Severe chronic obstructive pulmonary disease. 3. Hypertension. 4. Dyslipidemia. 5. Hypothyroidism. 6. Osteoporosis. 7. Acute respiratory failure with hypoxia. PLAN: To continue her current regimen with antibiotics, DuoNeb, IV steroids, and start her on probiotics and use p.r.n. antiemetic/antinausea medications. She will remain in IMCU until she is cleared by television news producer. Job ID: [id number]
[2019-09-01] MEDS ORDERED: Saccharomyces boulardii 250 MG CAP PO SCH (10:00)
[2019-09-01] MEDS ORDERED: Lisinopril 5 MG TAB PO SCH (10:00)
[2019-09-01] MEDS: Azithromycin 500 MG in Sodium Chloride 0.9% 250 ML 250 ML IVPB SCH (11:43)
[2019-09-01] MEDS: HYDROcodone/Acetaminophen 5/325 mg Tablet PO PRN (14:08)
--- NOTE | 2019-09-01 20:14 | PRG ---
DATE OF SERVICE: 09/01/2019 SUBJECTIVE: Ashley Sidhu says she is feeling better, although she is nowhere near her baseline. OBJECTIVE: VITAL SIGNS: She is afebrile. Heart rate is in the 90s, respiratory rates in the teens, oximetry is 100% on 2 L. LUNGS: Remarkable for distant wheezes diffusely. HEART: Regular rhythm. ABDOMEN: Soft. EXTREMITIES: Without asymmetry or edema. NEUROLOGICAL: Nonfocal. LABORATORY DATA: White count 16.6, hemoglobin 12.7, platelets 177. Sodium 135, potassium 3.7, chloride 107, bicarb 23, BUN 7, and creatinine 0.58. IMPRESSION: Severe underlying chronic obstructive pulmonary disease with chronic obstructive pulmonary disease exacerbation, likely triggered by her pneumonia. Overall, she is slowly improving. We will continue to follow. Job ID: [id number]
[2019-09-02] MEDS: methylPREDNISolone Sod Succ 40 MG VIAL IVP SCH ×4 (00:32→18:00)
[2019-09-02] MEDS: Diabetic Tussin 200 MG/10 ML UDCUP PO PRN (02:43)
[2019-09-02] MEDS: Sodium Chloride 0.9% 1,000 ML IV SCH (06:07)
[2019-09-02] MEDS: Levothyroxine Sodium 88 MCG TAB PO SCH (06:07)
[2019-09-02 06:39] VITALS: BMI 19.8
[2019-09-02] MEDS ORDERED: Bacteriostatic Water 30 ML VIAL FS PRN (06:46)
[2019-09-02] MEDS: Mometasone/Formoterol 120 PUFF INHALER INH SCH ×2 (07:33→19:27)
[2019-09-02] MEDS: Azithromycin 500 MG in Sodium Chloride 0.9% 250 ML 250 ML IVPB SCH (08:47)
[2019-09-02] MEDS: Saccharomyces boulardii 250 MG CAP PO SCH (08:48)
[2019-09-02] MEDS: Famotidine 20 MG TAB PO SCH ×2 (08:48→20:24)
[2019-09-02] MEDS: Enoxaparin Sodium 40 MG/0.4 ML SYRINGE SC SCH (08:48)
[2019-09-02] MEDS: Cefdinir 300 MG CAP PO SCH ×2 (08:48→20:24)
[2019-09-02] MEDS: Lisinopril 5 MG TAB PO SCH (08:49)
[2019-09-02] MEDS: guaiFENesin ER 600 MG TAB PO SCH ×2 (08:53→20:24)
--- NOTE | 2019-09-02 14:04 | PRG ---
DATE OF SERVICE: 09/02/2019 SUBJECTIVE: The patient is seen and examined at the bedside. She gets very tachycardic when she gets up and walks to the bathroom. Her heart rate goes up to 130s. At rest, she is 115 to 120s almost. Her appetite is so-so. OBJECTIVE: VITAL SIGNS: Blood pressure is 152/86, pulse is 107, respiratory rate is 29, O2 saturation 96% on O2. HEENT: Her head is atraumatic and normocephalic. Eyes are PERRLA. Sclerae are nonicteric. LUNGS: Emphysematous with some wheezes at both bases. HEART: S1 and S2 normal. No S3. No S4. Tachycardic. ABDOMEN: Soft, nontender, and nondistended. EXTREMITIES: No clubbing, cyanosis, or edema. NEUROLOGIC: She is alert and oriented x4. There are no any motor or sensory deficits. LABORATORY DATA: Labs, pending. Microbiology; no growth, blood and urine. IMPRESSION: 1. Acute exacerbation of chronic obstructive pulmonary disease, severe. 2. Pneumonia in the right lower lobe. 3. Hypertension. 4. Dyslipidemia. 5. Hypothyroidism. 6. Osteoporosis. 7. Acute respiratory failure with hypoxia secondary to #1 and #2. PLAN: Plan is to continue her on current regimen with DuoNeb, antibiotics, IV steroids, and probiotics. She is still in quite poor shape. She is tachycardic even at rest. She needs to stay in IMCU until she gets better before she can be transferred. Job ID: [id number]
[2019-09-02] MEDS: HYDROcodone/Acetaminophen 5/325 mg Tablet PO PRN (16:02)
[2019-09-02] MEDS: Sodium Chloride 0.65% Nasal 44 ML BOT EA NARE PRN (16:04)
[2019-09-02] MEDS: Benzonatate 100 MG CAP PO SCH ×2 (16:04→20:23)
[2019-09-02] MEDS: Cepastat Lozenges 1 LOZ PO PRN (16:07)
[2019-09-02] MEDS ORDERED: Benzonatate 100 MG CAP PO SCH (16:15)
--- NOTE | 2019-09-02 19:54 | PRG ---
DATE OF SERVICE: 09/02/2019 SUBJECTIVE: Ashley Sidhu says she is feeling better. She is still quite short of breath. OBJECTIVE: VITAL SIGNS: She is afebrile. Heart rate is 108, respiratory rate in the 20s, oximetry is 95% on 2 L, and blood pressure is 137/77 at 5 o'clock. LUNGS: Remarkable for diffuse wheezes. HEART: Regular rhythm. ABDOMEN: Soft. EXTREMITIES: Without edema. LABORATORY DATA: There is no new lab today. IMPRESSION: Pneumonia with chronic obstructive pulmonary disease exacerbation. PLAN: Continue current care. She is stable to move out of a monitor bed in my opinion. Job ID: [id number]
[2019-09-02] MEDS: guaiFENesin/Codeine Phosphate 200 mg/20 mg 10 ml UD Cup PO PRN (20:24)
[2019-09-03] MEDS: methylPREDNISolone Sod Succ 40 MG VIAL IVP SCH ×4 (00:23→20:41)
[2019-09-03] MEDS: Levothyroxine Sodium 88 MCG TAB PO SCH (06:07)
[2019-09-03] MEDS: Azithromycin 500 MG in Sodium Chloride 0.9% 250 ML 250 ML IVPB SCH (09:18)
[2019-09-03] MEDS: Mometasone/Formoterol 120 PUFF INHALER INH SCH ×2 (09:20→19:40)
[2019-09-03] MEDS: Enoxaparin Sodium 40 MG/0.4 ML SYRINGE SC SCH (09:33)
[2019-09-03] MEDS: Cefdinir 300 MG CAP PO SCH ×2 (09:33→20:41)
[2019-09-03] MEDS: Lisinopril 5 MG TAB PO SCH (09:33)
[2019-09-03] MEDS: Benzonatate 100 MG CAP PO SCH ×3 (09:33→20:40)
[2019-09-03] MEDS: Saccharomyces boulardii 250 MG CAP PO SCH (09:33)
[2019-09-03] MEDS: Famotidine 20 MG TAB PO SCH ×2 (09:33→20:41)
[2019-09-03] MEDS: guaiFENesin ER 600 MG TAB PO SCH ×2 (09:33→20:41)
--- NOTE | 2019-09-03 09:55 | PRG ---
DATE OF SERVICE: 09/03/2019 SUBJECTIVE: Ms. Sidhu states she is feeling a little bit better. She did feel well enough to go home. I have explained to her she will likely be in the hospital at least till Friday. OBJECTIVE: VITAL SIGNS: She is afebrile. Heart rate is 101, respiratory rate is 20, oximetry is 93% on 2 L, blood pressure 130/65. LUNGS: Remarkable for diffuse wheezes. These are improved compared to a few days ago, but are about the same as yesterday. HEART: Regular rhythm. ABDOMEN: Soft. LABORATORY DATA: No new lab. IMPRESSION: 1. Chronic obstructive pulmonary disease exacerbation. 2. Pneumonia. PLAN: I encouraged her to increase her activity. She could not sleep last night. She says Gengo works at home, so we will put Benadryl on her OCT. Hopefully, she will get some sleep with this. We will continue to follow. Job ID: [id number]
[2019-09-03] MEDS ORDERED: Amiodarone 450 MG, Admixture Fee 1 EACH in Dextrose 5% in Water 250 ML IVPB SCH (10:45)
[2019-09-03] MEDS: Diabetic Tussin 200 MG/10 ML UDCUP PO PRN (10:52)
[2019-09-03 12:28] LABS: ALT (SGPT) 44 U/L (8-55); AST (SGOT) 45 U/L (5-34); Albumin 3.7 g/dL (3.4-4.8); Alkaline Phosphatase 70 U/L (40-110); Bilirubin, Direct 0.1 mg/dL (0.1-0.3); Bilirubin, Total 0.4 mg/dL (0.2-1.2); Magnesium 2.2 mg/dL (1.6-2.6); Potassium 4.5 mmol/L (3.5-5.1)
--- NOTE | 2019-09-03 13:22 | PQF ---
CLINICAL DOCUMENTATION IMPROVEMENT CLARIFICATION FORM: ICD-10 Updated PLEASE DO AN ADDENDUM TO THE PROGRESS NOTE WITH ANY DOCUMENTATION UPDATES OR ADDITIONS AND CARRY THROUGH TO DC SUMMARY. THANK YOU. DATE: 09/03/2019; 09/06/2019 ATTN: Dr. Sheets/ Dr. Roca Please exercise your independent, professional judgment in responding to the clarification form. Clinical indicators are provided on the bottom of this form for your review Please check appropriate box(s) to clarify if the following diagnosis has been ruled in or ruled out: SEPSIS [ ] Ruled in diagnosis [ ] Continue to treat [ ] Resolved [ ] Ruled out diagnosis [ ] Cannot rule out diagnosis [ ] Other diagnosis [ ] Unable to determine In addition, please specify: Present on Admission (POA): [ ] Yes [ ] No [ ] Unable to determine For continuity of documentation, please document condition throughout progress notes and discharge summary. Thank You. CLINICAL INDICATORS - SIGNS / SYMPTOMS / LABS / RESULTS AND LOCATION IN MR ER Record 08/31: VS: BP 137/63, Pulse 128, Resp. 27, Temp. 98.0 O2 sat 85 on RA Will admit for sepsis due to pneumonia. H&P 08/31: WBC 25.9 Chest x-ray consistent with COPD changes, infiltrative changes in r lung base. Acute respiratory failure with hypoxia Sepsis with acute organ dysfunction R LL pneumonia, suspected from streptococcus COPD exacerbation RISKS: H&P 08/31: 69 yo who has underlying hx of COPD. R LL pneumonia, suspected from streptococcus. TREATMENT: 08/31 INTERMEDIATE CARE Order 08/31-09/03: Zithromax 500mg IV Order 08/31-09/02: Maxipime 2 gm IV q 12 hr Order 09/02: Omnicef 300 mg po BID Thank you, Ivy (This form is maintained as a part of the permanent medical record) 2014 [employer]. All Rights Reserved Ivy Graff RN, BSN [email or web address] Office: [phone] [facility]
--- NOTE | 2019-09-03 13:31 | PRG ---
DATE OF SERVICE: 09/03/2019 SUBJECTIVE: The patient is seen and examined at the bedside. She just went into a fast heart beat during the breathing treatment. Her pulse is up to 160s beats per minute, and according to EKG, she is probably in atrial fibrillation or atrial flutter with this rate. OBJECTIVE: GENERAL: She is short of breath. HEENT: Her head is atraumatic and normocephalic. Eyes are PERRLA. Sclerae are nonicteric. Oral mucosa is moist. NECK: Supple. LUNGS: Very emphysematous. Breath sounds diminished at both bases. HEART: S1 and S2, tachycardic. No S3. No S4. ABDOMEN: Soft, nontender, nondistended. EXTREMITIES: 1+ peripheral edema similar bilateral on both lower extremities. NEUROLOGIC: She is alert and oriented x4. There are no any motor or sensory deficits. Cranial nerves are intact. LABORATORY DATA: Showed potassium of 4.5, magnesium 2.2, AST 45, ALT 44, TSH 0.179. Microbiology; 2 blood cultures negative, urine culture negative. IMPRESSION: 1. Acute exacerbation of chronic obstructive pulmonary disease, severe, somewhat better. 2. Pneumonia in the right lower lobe. 3. Atrial fibrillation versus atrial flutter. 4. Hypertension. 5. Dyslipidemia. 6. Hypothyroidism. 7. Osteoporosis. 8. Acute respiratory failure with hypoxia secondary to #1 and #2. PLAN: Transfer the patient to telemetry floor. Start Cardizem IV push to slow her heartbeat to block AV node. Get Cardiology involved, and Dr. Mcneil was notified about the patient's condition. He agrees with the plan. The case was discussed with Dr. Galo to see her for Cardiology evaluation, and for now, we will continue her regimen with one change, which will be change albuterol to Xopenex q.4 and continue Atrovent as before along with IV steroids and antibiotic which is Omnicef 300 mg twice a day. Job ID: [id number]
[2019-09-03] MEDS: Ipratropium Bromide 2.5 ml Neb NEB PRN ×2 (14:07→19:35)
[2019-09-03] MEDS ORDERED: Levalbuterol HCl 1.25 MG/0.5 ML NEB NEB SCH (14:30)
[2019-09-03] MEDS: guaiFENesin/Codeine Phosphate 200 mg/20 mg 10 ml UD Cup PO PRN ×2 (16:18→20:41)
--- NOTE | 2019-09-03 17:58 | CON ---
DATE OF CONSULTATION: 09/03/2019 REASON FOR CONSULTATION: Atrial fibrillation/aflutter. HISTORY OF PRESENT ILLNESS: Ms. Sidhu is a pleasant 69-year-old white female, who comes to the hospital for increased shortness of breath. She has a history of underlying COPD. She had acute onset of respiratory distress, nausea, vomiting, chills, and fevers. Developed pleurisy, came into the hospital, diagnosed with pneumonia, placed on antibiotics and COPD exacerbation therapies. She was initially in the IMCU and eventually her breathing improved and was transferred to the medical floor. She was found to be tachycardic earlier today, so EKG was performed. She was found to be in atrial flutter with 2:1 AV block. She was given diltiazem and transferred to the telemetry unit. Cardiology has been consulted for this. On my evaluation, Ms. Sidhu is back in sinus rhythm. She goes in the sinus tach and sinus rhythm. Currently, she is back to where she was before. She had aflutter. She remains in sinus rhythm. Denies any chest pain, tightness, pressure other than what she had when she came in. PAST MEDICAL HISTORY: 1. COPD. 2. History of coronary artery disease, unclear. She has never had a heart catheterization as far as she can tell. She tells me she has had a stress test in the past in the setting of having had a rhythm in the ER, they gave her something to slow her heart down. She did a stress and an echo. This was about 10 years ago in [place]. She has not seen Cardiology since. 3. Hypertension. 4. Hyperlipidemia. 5. FEV1 of 590 mL. FAMILY HISTORY: No early coronary artery disease. SOCIAL HISTORY: Quit smoking several years ago. No alcohol or drugs. REVIEW OF SYSTEMS: A 12-point review of systems was negative unless stated in the history of present illness. PAST SURGICAL HISTORY: 1. Bilateral cataract surgery. 2. Breast mass removal in the left. 3. AAA repair in 2013. OUTPATIENT MEDICATIONS: 1. Levothyroxine 88 mcg a day. 2. Lisinopril 5 mg a day. 3. Metoprolol 25 mg a day. 4. Lipitor 80 mg a day. 5. Vitamin C. 6. Fosamax. 7. Ventolin inhaler. 8. DuoNeb. 9. Breo Ellipta. ALLERGIES: NO KNOWN DRUG ALLERGIES. PHYSICAL EXAMINATION: VITAL SIGNS: Temperature 97.5, pulse 93, respiratory rate 17, sat 98% on 2 L nasal cannula, blood pressure 191/88 . GENERAL: Awake, alert, oriented x3, in no distress. HEENT: Normocephalic and atraumatic. NECK: Supple. LUNGS: Reduced breath sounds with expiratory wheezes. CARDIOVASCULAR: S1 and S2. Tachycardic in the low 100s. No murmurs. No rubs. ABDOMEN: Soft. Positive bowel sounds. EXTREMITIES: No edema. SKIN: Warm and dry. LABORATORY DATA: Laboratory work was reviewed. White count of 25, down to 16; hemoglobin of 12; hematocrit 37; platelet count of 177. ABG was reviewed. Chemistries were reviewed. Normal potassium at 3.7 two days ago, this morning at 4.5. LFTs were unremarkable. AST was a little bit high at 45. Troponin was negative x2. TSH was 0.17. UA was unremarkable. EKG was reviewed, 2:1 atrial flutter. ASSESSMENT: 1. Atrial flutter, atypical. 2. Chronic obstructive pulmonary disease with acute exacerbation. 3. Pneumonia. 4. History of tobacco use. PLAN: 1. Echocardiogram to be done to assess LV function and valvular structures. The last one she had here had an EF of about 60%. 2. We will start a diltiazem oral dosage twice a day to try to suppress some of her aflutter. 3. If she continues to have a lot of episodes, we may consult Electrophysiology as she may be a candidate for an ablation. 4. We will do full anticoagulation with subcu Lovenox. She states she will not be able to afford any high dollar medications which leads me to believe that she is not interested in doing anything like Eliquis or Xarelto. We will do full dose of Eliquis at this time and we may need to do warfarin before discharge as her CHADS-VASc score is 3 for age female and hypertension. Thank you for letting us to participate in the care of your patient. We will follow. Job ID: [id number]
[2019-09-03] MEDS: Cepastat Lozenges 1 LOZ PO PRN (19:02)
[2019-09-03] MEDS: Acetaminophen 325 MG TAB PO PRN (19:02)
[2019-09-03] MEDS: Levalbuterol HCl 1.25 MG/0.5 ML NEB NEB SCH ×3 (19:02→22:38)
[2019-09-03] MEDS: Diltiazem HCl SR 60 mg Capsule PO SCH (20:40)
[2019-09-03] MEDS: Enoxaparin Sodium 60 MG/0.6 ML SYRINGE SC SCH (20:41)
[2019-09-03] MEDS: Sodium Chloride 0.65% Nasal 44 ML BOT EA NARE PRN (20:42)
[2019-09-03] MEDS: diphenhydrAMINE 50 MG CAP PO PRN (20:54)
[2019-09-03] MEDS ORDERED: Sodium Chloride For Inhalation 0.9% 3 ML NEB ONE (22:35)
[2019-09-04] MEDS: Ipratropium Bromide 2.5 ml Neb NEB PRN ×6 (02:42→22:01)
[2019-09-04] MEDS: guaiFENesin/Codeine Phosphate 200 mg/20 mg 10 ml UD Cup PO PRN ×3 (02:47→19:33)
[2019-09-04] MEDS: methylPREDNISolone Sod Succ 40 MG VIAL IVP SCH ×3 (05:21→20:16)
[2019-09-04] MEDS: Levothyroxine Sodium 88 MCG TAB PO SCH (05:21)
[2019-09-04] MEDS: Levalbuterol HCl 1.25 MG/0.5 ML NEB NEB SCH ×6 (06:45→22:01)
[2019-09-04] MEDS: Mometasone/Formoterol 120 PUFF INHALER INH SCH ×2 (06:57→18:44)
[2019-09-04] MEDS: Benzonatate 100 MG CAP PO SCH ×3 (09:35→19:32)
[2019-09-04] MEDS: guaiFENesin ER 600 MG TAB PO SCH ×2 (09:36→19:33)
[2019-09-04] MEDS: Cefdinir 300 MG CAP PO SCH ×2 (09:36→19:33)
[2019-09-04] MEDS: Saccharomyces boulardii 250 MG CAP PO SCH (09:36)
[2019-09-04] MEDS: Lisinopril 5 MG TAB PO SCH (09:36)
[2019-09-04] MEDS: Diltiazem HCl SR 60 mg Capsule PO SCH ×2 (09:36→19:33)
[2019-09-04] MEDS: Enoxaparin Sodium 60 MG/0.6 ML SYRINGE SC SCH ×2 (09:36→20:15)
[2019-09-04] MEDS: Famotidine 20 MG TAB PO SCH ×2 (09:36→19:33)
--- NOTE | 2019-09-04 12:01 | PDOC.HOSPP ---
- Subjective Encounter Date: 09/04/19 Encounter Time: 11:59 Subjective: Feeling generally better. About 60% back to her baseline. Still has cough with very thick sputum. - Objective Vital Signs & Weight: Vital Signs (12 hours) Temp Pulse Resp BP Pulse Ox 09/04/19 10:13 91 18 93 L 09/04/19 09:36 94 09/04/19 08:00 96.6 F L 90 18 166/107 H 92 L 09/04/19 06:56 94 18 94 L 09/04/19 03:54 97.7 F 77 20 127/68 95 09/04/19 02:42 115 H 20 09/04/19 00:00 84 154/74 H Weight Weight 118 lb 3.2 oz Most Recent Monitor Data Heart Rate from ECG 117 NIBP 137/77 NIBP BP-Mean 97 Respiration from ECG 23 SpO2 94 I&O: 09/03/19 09/04/19 09/05/19 06:59 06:59 06:59 Intake Total 1200 Output Total 2000 Balance -800 Result Diagrams: 09/01/19 03:24 09/06/19 08:01 Hospitalist ROS - Medication Medications: Active Medications Generic Name Dose Route Start Last Admin Trade Name Freq PRN Reason Stop Dose Admin Acetaminophen 650 mg 08/31/19 14:04 09/03/19 19:02 Tylenol PO 650 mg Q4H PRN Administration Headache/Fever/Mild Pain (1-3) Hydrocodone Bitart/Acetaminophen 1 tab 08/31/19 14:04 09/02/19 16:02 [place] 5/325 PO 1 tab Q4H PRN Administration Moderate Pain (4-6) Benzonatate 200 mg 09/02/19 21:00 09/04/19 09:35 Tessalon PO 200 mg TID TIFF Administration Cefdinir 300 mg 09/02/19 09:00 09/04/19 09:36 Omnicef PO 300 mg BID TIFF Administration Diltiazem HCl 60 mg 09/03/19 21:00 09/04/19 09:36 Cardizem Sr PO 60 mg BID TIFF Administration Diphenhydramine HCl 50 mg 09/03/19 09:32 09/03/19 20:54 Benadryl PO 50 mg Q6H PRN Administration Itching & Insomnia Enoxaparin Sodium 50 mg 09/03/19 21:00 09/04/19 09:36 Lovenox SC 50 mg 0900,2100 TIFF Administration Famotidine 20 mg 08/31/19 21:00 09/04/19 09:36 Pepcid PO 20 mg BID TIFF Administration Guaifenesin 600 mg 08/31/19 21:00 09/04/19 09:36 Mucinex PO 600 mg Q12HR TIFF Administration Guaifenesin 200 mg 08/31/19 14:04 09/03/19 10:52 Robitussin Sf PO 200 mg Q4H PRN Administration Cough Guaifenesin/Codeine Phosphate 10 ml 09/02/19 15:23 09/04/19 09:37 Robitussin Ac PO 10 ml Q4H PRN Administration Cough Ipratropium [place] 2.5 ml 09/03/19 10:42 09/04/19 10:16 Atrovent NEB 2.5 ml Q4H PRN Administration SOB &/or Wheezing Levalbuterol HCl 1.25 mg 09/03/19 14:30 09/04/19 10:13 Xopenex Conc NEB 1.25 mg [id number] TIFF Administration Levothyroxine Sodium 88 mcg 09/01/19 06:00 09/04/19 05:21 Synthroid PO 88 mcg 0600 TIFF Administration Lisinopril 5 mg 09/02/19 09:00 09/04/19 09:36 Zestril PO 5 mg DAILY TIFF Administration Methylprednisolone Sodium Succinate 20 mg 09/03/19 14:00 09/04/19 05:21 Solu-Medrol IVP 20 mg Q8HR TIFF Administration Metoclopramide HCl 5 mg 08/31/19 14:04 09/01/19 08:11 Reglan IVP 5 mg Q4H PRN Administration Nausea Mometasone Furoate/Formoterol Fumar 2 puff 08/31/19 18:30 09/04/19 06:57 Dulera 200 Mcg/5 Mcg Inhaler INH 2 puff BID-RT TIFF Administration Morphine Sulfate 4 mg 08/31/19 15:01 08/31/19 21:13 Morphine SLOW IVP 4 mg Q4H PRN Administration Chest Pain Saccharomyces Boulardii 250 mg 09/02/19 09:00 09/04/19 09:36 Florastor PO 250 mg DAILY TIFF Administration Sodium Chloride 0 ml 08/31/19 14:04 09/03/19 20:42 [place] Nasal [place] 0.65% EA NARE 1 spray QIDPRN PRN Administration Nasal Congestion Throat Lozenges 1 melissa 08/31/19 14:04 09/03/19 19:02 Cepastat Lozenges PO 1 melissa Q2H PRN Administration Sore Throat - Exam General Appearance: NAD, awake alert ENT: normocephalic atraumatic, no oropharyngeal lesions, moist mucosa Neck: supple, symmetric, no JVD, no thyromegaly, no lymphadenopathy, no carotid bruit Heart: RRR, no murmur, no gallops, no rubs, normal peripheral pulses Respiratory: rales (Minimal) Respiratory - other findings: diminished. Gastrointestinal: soft, non-tender, non-distended, normal bowel sounds, no palpable masses, no hepatomegaly, no splenomegaly, no bruit Extremities: no cyanosis, no clubbing, no edema Skin: normal turgor Musculoskeletal: normal tone Psychiatric: normal affect, normal behavior, A&O x 3 Hosp A/P (1) Atrial flutter with rapid ventricular response Code(s): I48.92 - UNSPECIFIED ATRIAL FLUTTER Status: Acute (2) CAD (coronary artery disease) Code(s): I25.10 - ATHSCL HEART DISEASE OF [place] CORONARY ARTERY W/O ANG PCTRS Status: Chronic (3) COPD (chronic obstructive pulmonary disease) Status: Chronic (4) Dyslipidemia Code(s): E78.5 - HYPERLIPIDEMIA, UNSPECIFIED Status: Chronic (5) Hypertension Code(s): I10 - ESSENTIAL (PRIMARY) HYPERTENSION Status: Chronic (6) Sepsis Code(s): A41.9 - SEPSIS, UNSPECIFIED ORGANISM Status: Acute - Plan Continue nebs, steroids PO omnicef. Long discussion regarding anticoagulation. She prefers to stay on Eliquis for now. Can have the 30 trial on discharge and the follow up with Dr. Galo and Kell and check with her insurance to see if that will be viable long-term.
[2019-09-04] MEDS: Acetaminophen 325 MG TAB PO PRN ×2 (13:02→19:32)
--- NOTE | 2019-09-04 13:15 | PRG ---
DATE OF SERVICE: 09/04/2019 SUBJECTIVE: Ashley Sidhu is still short of breath, less cough. OBJECTIVE: VITAL SIGNS: Temperature 98.6, pulse 90, saturations 93% on 2 L, and blood pressure 161/70. CHEST: Bilateral wheezing. CARDIAC: Normal S1 and S2. No gallops. ABDOMEN: No masses. ASSESSMENT: 1. Chronic obstructive pulmonary disease exacerbation. 2. Bronchitis. PLAN: Continue neb treatments. Continue Dulera, steroids. We will follow. Job ID: [id number]
--- NOTE | 2019-09-04 15:36 | PDOC.CPN ---
- Subjective Date: 09/04/19 Time: 15:33 Interval history: Doing well. No more afib. Breathing better. - Review of Systems General: denies: fever/chills, weight/appetite/sleep changes, night sweats, fatigue Respiratory: reports: shortness of breath. denies: cough, congestion, exercise intolerance Cardiovascular: denies: chest pain, palpitation, edema, paroxysmal nocturnal dyspnea, orthopnea Gastrointestinal: denies: nausea, vomiting, diarrhea, constipation, abd pain, GI bleeding Musculoskeletal: denies: pain, tenderness, stiffness, swelling, arthritis/ arthralgias Neurological: denies: numbness, syncope, seizure, weakness - Objective Allergies/Adverse Reactions: Allergies Allergy/AdvReac Type Severity Reaction Status Date / Time No Known Allergies Allergy Verified 01/23/19 16:21 Visit Medications: Current Medications Acetaminophen (Tylenol) 650 mg PO Q4H PRN PRN Reason: Headache/Fever/Mild Pain (1-3) Last Admin: 09/04/19 13:02 Dose: 650 mg Hydrocodone Bitart/Acetaminophen ([place] 5/325) 1 tab PO Q4H PRN PRN Reason: Moderate Pain (4-6) Last Admin: 09/02/19 16:02 Dose: 1 tab Albuterol/Ipratropium (Duoneb) 3 ml NEB Q2H PRN PRN Reason: SOB &/or Wheezing Artificial Tears (Tears Naturale) 2 drop EA EYE PRN PRN PRN Reason: Dry Eyes Benzonatate (Tessalon) 200 mg PO TID [facility] Last Admin: 09/04/19 15:17 Dose: 200 mg Bisacodyl (Dulcolax) 10 mg [place] DAILYPRN PRN PRN Reason: Constipation Cefdinir (Omnicef) 300 mg PO BID [facility] Last Admin: 09/04/19 09:36 Dose: 300 mg Diltiazem HCl (Cardizem Sr) 60 mg PO BID [facility] Last Admin: 09/04/19 09:36 Dose: 60 mg Diphenhydramine HCl (Benadryl) 50 mg PO Q6H PRN PRN Reason: Itching & Insomnia Last Admin: 09/03/19 20:54 Dose: 50 mg Enoxaparin Sodium (Lovenox) 50 mg SC 0900,2100 [facility] Last Admin: 09/04/19 09:36 Dose: 50 mg Famotidine (Pepcid) 20 mg PO BID [facility] Last Admin: 09/04/19 09:36 Dose: 20 mg Guaifenesin (Mucinex) 600 mg PO Q12HR [facility] Last Admin: 09/04/19 09:36 Dose: 600 mg Guaifenesin (Robitussin Sf) 200 mg PO Q4H PRN PRN Reason: Cough Last Admin: 09/03/19 10:52 Dose: 200 mg Guaifenesin/Codeine Phosphate (Robitussin Ac) 10 ml PO Q4H PRN PRN Reason: Cough Last Admin: 09/04/19 09:37 Dose: 10 ml Hydralazine HCl (Apresoline) 10 mg SLOW IVP Q4H PRN PRN Reason: SBP > 180 and HR < 70 Ipratropium [place] (Atrovent) 2.5 ml NEB Q4H PRN PRN Reason: SOB &/or Wheezing Last Admin: 09/04/19 14:14 Dose: 2.5 ml Levalbuterol HCl (Xopenex Conc) 1.25 mg NEB [id number] [facility] Last Admin: 09/04/19 14:19 Dose: 1.25 mg Levothyroxine Sodium (Synthroid) 88 mcg PO 0600 [facility] Last Admin: 09/04/19 05:21 Dose: 88 mcg Lisinopril (Zestril) 5 mg PO DAILY [facility] Last Admin: 09/04/19 09:36 Dose: 5 mg Loperamide HCl (Imodium) 2 mg PO PRN PRN PRN Reason: Diarrhea/Loose Stools Loratadine (Claritin) 10 mg PO DAILYPRN PRN PRN Reason: Sinus Symptoms Methylprednisolone Sodium Succinate (Solu-Medrol) 20 mg IVP Q8HR [facility] Last Admin: 09/04/19 13:02 Dose: 20 mg Metoclopramide HCl (Reglan) 5 mg IVP Q4H PRN PRN Reason: Nausea Last Admin: 09/01/19 08:11 Dose: 5 mg Mometasone Furoate/Formoterol Fumar (Dulera 200 Mcg/5 Mcg Inhaler) 2 puff INH BID-RT [facility] Last Admin: 09/04/19 06:57 Dose: 2 puff Morphine Sulfate (Morphine) 4 mg SLOW IVP Q4H PRN PRN Reason: Chest Pain Last Admin: 08/31/19 21:13 Dose: 4 mg Saccharomyces Boulardii (Florastor) 250 mg PO DAILY TIFF Last Admin: 09/04/19 09:36 Dose: 250 mg Senna/Docusate Sodium (Senokot S) 2 tab PO BIDPRN PRN PRN Reason: Constipation Sodium Chloride ([place] Nasal [place] 0.65%) 0 ml EA NARE QIDPRN PRN PRN Reason: Nasal Congestion Last Admin: 09/03/19 20:42 Dose: 1 spray Sterile Water (Bacteriostatic Water) 1 ml FS PRN PRN PRN Reason: RECONSTITUTION Throat Lozenges (Cepastat Lozenges) 1 melissa PO Q2H PRN PRN Reason: Sore Throat Last Admin: 09/03/19 19:02 Dose: 1 melissa Vital Signs & Weight: Vital Signs Temp Pulse Resp BP Pulse Ox 09/04/19 14:14 85 16 09/04/19 12:00 98.4 F 107 H 16 167/83 H 95 09/04/19 10:13 91 18 93 L 09/04/19 09:36 94 09/04/19 08:00 96.6 F L 90 18 166/107 H 92 L 09/04/19 06:56 94 18 94 L 09/04/19 03:54 97.7 F 77 20 127/68 95 Weight 118 lb 3.2 oz - Physical Exam General: alert & oriented x3 HEENT: mucus membranes moist Neck: supple neck Cardiac: regular rate and rhythm, no murmur Lungs: decreased breath sounds Neuro: grossly intact Abdomen: active bowel sounds Extremities: no edema Skin: clear Musculoskeletal: no pain - Labs Result Diagrams: 09/01/19 03:24 09/03/19 11:20 Troponin/CKMB Troponin I 0.012 ng/mL (< 0.028) 08/31/19 15:04 - Telemetry Sinus rhythms and dysrhythmias: sinus rhythm - Assessment/Plan Assessment/Plan: 1. Atypical atrial flutter. 2. COPD with acute exacerbation 3. Pneumonia 4. CHADs VASc score of 3 (age, female, HTN) PLAN: - Full anticoagulation with Eliquis 5 mg BID before discharge - Continue Diltiazem and BB. - Normal LV function on echo.
[2019-09-04] MEDS: diphenhydrAMINE 50 MG CAP PO PRN (22:14)
[2019-09-05] MEDS: guaiFENesin/Codeine Phosphate 200 mg/20 mg 10 ml UD Cup PO PRN ×2 (01:43→06:40)
[2019-09-05] MEDS: Acetaminophen 325 MG TAB PO PRN ×3 (01:43→15:28)
[2019-09-05] MEDS: Levalbuterol HCl 1.25 MG/0.5 ML NEB NEB SCH ×6 (02:08→21:35)
[2019-09-05] MEDS: Levothyroxine Sodium 88 MCG TAB PO SCH (06:36)
[2019-09-05] MEDS: methylPREDNISolone Sod Succ 40 MG VIAL IVP SCH ×3 (06:37→21:59)
[2019-09-05] MEDS: Mometasone/Formoterol 120 PUFF INHALER INH SCH ×2 (07:01→18:18)
[2019-09-05] MEDS: Benzonatate 100 MG CAP PO SCH ×3 (09:16→22:01)
[2019-09-05] MEDS: Cefdinir 300 MG CAP PO SCH ×2 (09:16→21:58)
[2019-09-05] MEDS: Diltiazem HCl SR 60 mg Capsule PO SCH ×2 (09:16→21:58)
[2019-09-05] MEDS: Enoxaparin Sodium 60 MG/0.6 ML SYRINGE SC SCH ×2 (09:17→21:58)
[2019-09-05] MEDS: Saccharomyces boulardii 250 MG CAP PO SCH (09:17)
[2019-09-05] MEDS: Famotidine 20 MG TAB PO SCH ×2 (09:17→21:58)
[2019-09-05] MEDS: Lisinopril 5 MG TAB PO SCH (09:17)
[2019-09-05] MEDS: guaiFENesin ER 600 MG TAB PO SCH ×2 (09:17→21:58)
[2019-09-05] MEDS: Ipratropium Bromide 2.5 ml Neb NEB PRN ×2 (10:25→14:06)
--- NOTE | 2019-09-05 12:31 | PRG ---
DATE OF SERVICE: 09/05/2019 SUBJECTIVE: She is doing better. OBJECTIVE: VITAL SIGNS: Temperature 97, pulse 98, respiratory rate 24, saturations 95% on 2 L, blood pressure 149/72. GENERAL: Less cough. Less shortness of breath. CHEST: Decreased breath sounds. No wheezing. CARDIAC: Normal S1, S2. No gallops. ABDOMEN: Soft. IMPRESSION: 1. Chronic obstructive pulmonary disease. 2. Bronchitis. 3. Pneumonia, improved. P.o. medication. PT, supportive care. DISPOSITION: Home soon. Job ID: [id number]
--- NOTE | 2019-09-05 16:15 | PDOC.CPN ---
- Subjective Date: 09/05/19 Time: 16:13 Interval history: She had an episode of rapid aflutter overnight, she was very symptomatic, she converted after IV dose of diltiazem. - Review of Systems General: denies: fever/chills, weight/appetite/sleep changes, night sweats, fatigue Respiratory: reports: shortness of breath. denies: cough, congestion, exercise intolerance Cardiovascular: denies: chest pain, palpitation, edema, paroxysmal nocturnal dyspnea, orthopnea Gastrointestinal: denies: nausea, vomiting, diarrhea, constipation, abd pain, GI bleeding Musculoskeletal: denies: pain, tenderness, stiffness, swelling, arthritis/ arthralgias Neurological: denies: numbness, syncope, seizure, weakness - Objective Allergies/Adverse Reactions: Allergies Allergy/AdvReac Type Severity Reaction Status Date / Time No Known Allergies Allergy Verified 01/23/19 16:21 Visit Medications: Current Medications Acetaminophen (Tylenol) 650 mg PO Q4H PRN PRN Reason: Headache/Fever/Mild Pain (1-3) Last Admin: 09/05/19 15:28 Dose: 650 mg Hydrocodone Bitart/Acetaminophen ([place] 5/325) 1 tab PO Q4H PRN PRN Reason: Moderate Pain (4-6) Last Admin: 09/02/19 16:02 Dose: 1 tab Albuterol/Ipratropium (Duoneb) 3 ml NEB Q2H PRN PRN Reason: SOB &/or Wheezing Artificial Tears (Tears Naturale) 2 drop EA EYE PRN PRN PRN Reason: Dry Eyes Benzonatate (Tessalon) 200 mg PO TID [facility] Last Admin: 09/05/19 15:24 Dose: 200 mg Bisacodyl (Dulcolax) 10 mg [place] DAILYPRN PRN PRN Reason: Constipation Cefdinir (Omnicef) 300 mg PO BID [facility] Last Admin: 09/05/19 09:16 Dose: 300 mg Diltiazem HCl (Cardizem Sr) 60 mg PO BID [facility] Last Admin: 09/05/19 09:16 Dose: 60 mg Diphenhydramine HCl (Benadryl) 50 mg PO Q6H PRN PRN Reason: Itching & Insomnia Last Admin: 09/04/19 22:14 Dose: 50 mg Enoxaparin Sodium (Lovenox) 50 mg SC 0900,2100 [facility] Last Admin: 09/05/19 09:17 Dose: 50 mg Famotidine (Pepcid) 20 mg PO BID [facility] Last Admin: 09/05/19 09:17 Dose: 20 mg Guaifenesin (Mucinex) 600 mg PO Q12HR [facility] Last Admin: 09/05/19 09:17 Dose: 600 mg Guaifenesin (Robitussin Sf) 200 mg PO Q4H PRN PRN Reason: Cough Last Admin: 09/03/19 10:52 Dose: 200 mg Guaifenesin/Codeine Phosphate (Robitussin Ac) 10 ml PO Q4H PRN PRN Reason: Cough Last Admin: 09/05/19 06:40 Dose: 10 ml Hydralazine HCl (Apresoline) 10 mg SLOW IVP Q4H PRN PRN Reason: SBP > 180 and HR < 70 Ipratropium [place] (Atrovent) 2.5 ml NEB Q4H PRN PRN Reason: SOB &/or Wheezing Last Admin: 09/05/19 14:06 Dose: 2.5 ml Levalbuterol HCl (Xopenex Conc) 1.25 mg NEB [id number] [facility] Last Admin: 09/05/19 14:09 Dose: 1.25 mg Levothyroxine Sodium (Synthroid) 88 mcg PO 0600 [facility] Last Admin: 09/05/19 06:36 Dose: 88 mcg Lisinopril (Zestril) 5 mg PO DAILY [facility] Last Admin: 09/05/19 09:17 Dose: 5 mg Loperamide HCl (Imodium) 2 mg PO PRN PRN PRN Reason: Diarrhea/Loose Stools Loratadine (Claritin) 10 mg PO DAILYPRN PRN PRN Reason: Sinus Symptoms Methylprednisolone Sodium Succinate (Solu-Medrol) 20 mg IVP Q8HR [facility] Last Admin: 09/05/19 15:24 Dose: 20 mg Metoclopramide HCl (Reglan) 5 mg IVP Q4H PRN PRN Reason: Nausea Last Admin: 09/01/19 08:11 Dose: 5 mg Mometasone Furoate/Formoterol Fumar (Dulera 200 Mcg/5 Mcg Inhaler) 2 puff INH BID-RT [facility] Last Admin: 09/05/19 07:01 Dose: 2 puff Morphine Sulfate (Morphine) 4 mg SLOW IVP Q4H PRN PRN Reason: Chest Pain Last Admin: 08/31/19 21:13 Dose: 4 mg Saccharomyces Boulardii (Florastor) 250 mg PO DAILY TIFF Last Admin: 09/05/19 09:17 Dose: 250 mg Senna/Docusate Sodium (Senokot S) 2 tab PO BIDPRN PRN PRN Reason: Constipation Sodium Chloride ([place] Nasal [place] 0.65%) 0 ml EA NARE QIDPRN PRN PRN Reason: Nasal Congestion Last Admin: 09/03/19 20:42 Dose: 1 spray Sterile Water (Bacteriostatic Water) 1 ml FS PRN PRN PRN Reason: RECONSTITUTION Throat Lozenges (Cepastat Lozenges) 1 melissa PO Q2H PRN PRN Reason: Sore Throat Last Admin: 09/03/19 19:02 Dose: 1 melissa Vital Signs & Weight: Vital Signs Temp Pulse Resp BP Pulse Ox 09/05/19 14:06 81 16 96 09/05/19 11:53 97.5 F L 98 24 H 149/72 H 94 L 09/05/19 10:25 79 16 94 L 09/05/19 09:17 94 09/05/19 08:00 94 L 09/05/19 07:42 98 F 94 17 157/64 H 94 L 09/05/19 06:56 89 16 96 Weight 117 lb 4.8 oz - Physical Exam General: alert & oriented x3 HEENT: mucus membranes moist Neck: supple neck Cardiac: regular rate and rhythm Lungs: decreased breath sounds Neuro: grossly intact Abdomen: active bowel sounds Extremities: no edema Skin: clear Musculoskeletal: no pain - Labs Result Diagrams: 09/01/19 03:24 09/03/19 11:20 Troponin/CKMB Troponin I 0.012 ng/mL (< 0.028) 08/31/19 15:04 - Telemetry Sinus rhythms and dysrhythmias: sinus rhythm - Assessment/Plan Assessment/Plan: 1. Atypical atrial flutter. 2. COPD with acute exacerbation 3. Pneumonia 4. CHADs VASc score of 3 (age, female, HTN) PLAN: - Full anticoagulation with Eliquis 5 mg BID before discharge - Continue Diltiazem and BB. - Normal LV function on echo - Will ask EP to see for consideration of an ablation. She may not be a candidate given her advanced COPD.
--- NOTE | 2019-09-05 16:25 | PDOC.HOSPP ---
- Subjective Subjective: Doing well right now, but had an episode last night of aflutter with RVR. Required IV Dilt, but better now. Breathing is better. - Objective Vital Signs & Weight: Vital Signs (12 hours) Temp Pulse Resp BP Pulse Ox 09/05/19 14:06 81 16 96 09/05/19 11:53 97.5 F L 98 24 H 149/72 H 94 L 09/05/19 10:25 79 16 94 L 09/05/19 09:17 94 09/05/19 08:00 94 L 09/05/19 07:42 98 F 94 17 157/64 H 94 L 09/05/19 06:56 89 16 96 Weight Weight 117 lb 4.8 oz Most Recent Monitor Data Heart Rate from ECG 117 NIBP 137/77 NIBP BP-Mean 97 Respiration from ECG 23 SpO2 94 I&O: 09/04/19 09/05/19 09/06/19 06:59 06:59 06:59 Intake Total 1200 900 Output Total 2000 2200 Balance -800 -1300 Result Diagrams: 09/01/19 03:24 09/03/19 11:20 Hospitalist ROS - Medication Medications: Active Medications Generic Name Dose Route Start Last Admin Trade Name Freq PRN Reason Stop Dose Admin Acetaminophen 650 mg 08/31/19 14:04 09/05/19 15:28 Tylenol PO 650 mg Q4H PRN Administration Headache/Fever/Mild Pain (1-3) Hydrocodone Bitart/Acetaminophen 1 tab 08/31/19 14:04 09/02/19 16:02 [place] 5/325 PO 1 tab Q4H PRN Administration Moderate Pain (4-6) Benzonatate 200 mg 09/02/19 21:00 09/05/19 15:24 Tessalon PO 200 mg TID TIFF Administration Cefdinir 300 mg 09/02/19 09:00 09/05/19 09:16 Omnicef PO 300 mg BID TIFF Administration Diltiazem HCl 60 mg 09/03/19 21:00 09/05/19 09:16 Cardizem Sr PO 60 mg BID TIFF Administration Diphenhydramine HCl 50 mg 09/03/19 09:32 09/04/19 22:14 Benadryl PO 50 mg Q6H PRN Administration Itching & Insomnia Enoxaparin Sodium 50 mg 09/03/19 21:00 09/05/19 09:17 Lovenox SC 50 mg 0900,2100 TIFF Administration Famotidine 20 mg 08/31/19 21:00 09/05/19 09:17 Pepcid PO 20 mg BID TIFF Administration Guaifenesin 600 mg 08/31/19 21:00 09/05/19 09:17 Mucinex PO 600 mg Q12HR TIFF Administration Guaifenesin 200 mg 08/31/19 14:04 09/03/19 10:52 Robitussin Sf PO 200 mg Q4H PRN Administration Cough Guaifenesin/Codeine Phosphate 10 ml 09/02/19 15:23 09/05/19 06:40 Robitussin Ac PO 10 ml Q4H PRN Administration Cough Ipratropium [place] 2.5 ml 09/03/19 10:42 09/05/19 14:06 Atrovent NEB 2.5 ml Q4H PRN Administration SOB &/or Wheezing Levalbuterol HCl 1.25 mg 09/03/19 14:30 09/05/19 14:09 Xopenex Conc NEB 1.25 mg [id number] TIFF Administration Levothyroxine Sodium 88 mcg 09/01/19 06:00 09/05/19 06:36 Synthroid PO 88 mcg 0600 TIFF Administration Lisinopril 5 mg 09/02/19 09:00 09/05/19 09:17 Zestril PO 5 mg DAILY TIFF Administration Methylprednisolone Sodium Succinate 20 mg 09/03/19 14:00 09/05/19 15:24 Solu-Medrol IVP 20 mg Q8HR TIFF Administration Metoclopramide HCl 5 mg 08/31/19 14:04 09/01/19 08:11 Reglan IVP 5 mg Q4H PRN Administration Nausea Mometasone Furoate/Formoterol Fumar 2 puff 08/31/19 18:30 09/05/19 07:01 Dulera 200 Mcg/5 Mcg Inhaler INH 2 puff BID-RT TIFF Administration Morphine Sulfate 4 mg 08/31/19 15:01 08/31/19 21:13 Morphine SLOW IVP 4 mg Q4H PRN Administration Chest Pain Saccharomyces Boulardii 250 mg 09/02/19 09:00 09/05/19 09:17 Florastor PO 250 mg DAILY TIFF Administration Sodium Chloride 0 ml 08/31/19 14:04 09/03/19 20:42 [place] Nasal [place] 0.65% EA NARE 1 spray QIDPRN PRN Administration Nasal Congestion Throat Lozenges 1 melissa 08/31/19 14:04 09/03/19 19:02 Cepastat Lozenges PO 1 [place]issa Q2H PRN Administration Sore Throat - Exam General Appearance: NAD, awake alert Heart: RRR, no murmur, no gallops, no rubs, normal peripheral pulses Respiratory: CTAB, no wheezes, no rales, no ronchi, normal chest expansion, no tachypnea, normal percussion Gastrointestinal: soft, non-tender, non-distended, normal bowel sounds, no palpable masses, no hepatomegaly, no splenomegaly, no bruit Skin: normal turgor Neurological: no focal deficits Musculoskeletal: normal tone, normal strength Psychiatric: normal affect, normal behavior, A&O x 3 Hosp A/P (1) Atrial flutter with rapid ventricular response Code(s): I48.92 - UNSPECIFIED ATRIAL FLUTTER Status: Acute (2) CAD (coronary artery disease) Code(s): I25.10 - ATHSCL HEART DISEASE OF [place] CORONARY ARTERY W/O ANG PCTRS Status: Chronic (3) COPD (chronic obstructive pulmonary disease) Status: Chronic (4) Dyslipidemia Code(s): E78.5 - HYPERLIPIDEMIA, UNSPECIFIED Status: Chronic (5) Hypertension Code(s): I10 - ESSENTIAL (PRIMARY) HYPERTENSION Status: Chronic - Plan Continue nebs, steroids PO omnicef. Long discussion regarding anticoagulation. She prefers to stay on Eliquis for now. Can have the 30 trial on discharge and the follow up with Dr. Galo and Kell and check with her insurance to see if that will be viable long-term. Lungs are improved. COPD makes her a poor candidate for amio. Discussed with Dr. Galo. Will consult EP to consider ablation.
[2019-09-06] MEDS: Levalbuterol HCl 1.25 MG/0.5 ML NEB NEB SCH ×6 (01:43→21:46)
[2019-09-06] MEDS: Levothyroxine Sodium 88 MCG TAB PO SCH (05:32)
[2019-09-06] MEDS: methylPREDNISolone Sod Succ 40 MG VIAL IVP SCH ×3 (05:32→21:28)
[2019-09-06] MEDS: Mometasone/Formoterol 120 PUFF INHALER INH SCH ×2 (07:16→18:24)
[2019-09-06 08:44] LABS: Anion Gap 14 mmol/L (10-20); BUN (Urea Nitrogen) 15 mg/dL (9.8-20.1); Calc. Creatinine Clearance 64 mL/min (70-130); Calcium 8.7 mg/dL (7.8-10.44); Carbon Dioxide 30 mmol/L (23-31); Chloride 98 mmol/L (98-107); Estimated GFR-MDRD 84; Glucose 115 mg/dL (80-115); Potassium 4.2 mmol/L (3.5-5.1); Sodium 138 mmol/L (136-145)
[2019-09-06] MEDS: Saccharomyces boulardii 250 MG CAP PO SCH (09:09)
[2019-09-06] MEDS: Famotidine 20 MG TAB PO SCH ×2 (09:09→21:27)
[2019-09-06] MEDS: guaiFENesin ER 600 MG TAB PO SCH ×2 (09:09→21:28)
[2019-09-06] MEDS: Diltiazem HCl SR 60 mg Capsule PO SCH ×2 (09:09→21:28)
[2019-09-06] MEDS: Benzonatate 100 MG CAP PO SCH ×3 (09:09→21:27)
[2019-09-06] MEDS: Lisinopril 5 MG TAB PO SCH (09:09)
[2019-09-06] MEDS: Cefdinir 300 MG CAP PO SCH ×2 (09:10→21:27)
[2019-09-06] MEDS: Enoxaparin Sodium 60 MG/0.6 ML SYRINGE SC SCH ×2 (09:10→21:28)
--- NOTE | 2019-09-06 09:34 | CON ---
DATE OF CONSULTATION: 09/06/2019 ADDITIONAL REFERRING PHYSICIAN: Campbell Galo MD HISTORY OF PRESENT ILLNESS: I am seeing Ms. 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 Her problems are: 1. Paroxysmal atrial flutter, appears to be typical isthmus dependent in morphology, now back in sinus rhythm. 2. Remote history of possible SVT and related type 2 myocardial infarction. 3. History of preserved LVEF at 60% to 65%, mild MR, mild TR. 4. Tjqwk-[id number]-ophltns chronic obstructive pulmonary disease with improving symptoms, possible pneumonia. 5. CHADS-VASc score of 3 with age, gender and hypertension. ALLERGIES: NONE NOTED. MEDICATIONS AT HOME: 1. Atrovent. 2. Ventolin. 3. Symbicort. 4. Alendronate. 5. Vitamin D. 6. Multivitamin. 7. Calcium and D3. 8. Vitamin C. 9. Lipitor. 10. Lopressor. 11. Lisinopril. 12. Levothyroxine. 13. Fluticasone. 14. Dicyclomine. 15. Zofran. 16. Pantoprazole. 17. Simethicone. SUBJECTIVE: Ms. Siduh is here since 7th with a COPD exacerbation, possible pneumonia. She has been treated by Pulmonology, and she is receiving antibiotics for sepsis with suspected Streptococcus. She also received IV steroids and since she is doing better from a pulmonary standpoint. Her blood cultures were negative x3. She nevertheless continues to have episodes of palpitations, which is not new for her. She has had these episodes in the past. The episodes are with rare rapid heart. By document here on the EKG and telemetry, it appears to be due to atrial flutter with 2:1 AV conduction. She does not pass out with these. No stroke- like symptoms. No neurological deficits. No fever, chills, or cough. No PND or orthopnea either, but markedly feels her heart is jumping out of her chest. Currently, she is doing fair. Otherwise, her dyspnea is improving. Able to lay flat. No angina-like discomfort. No stroke-like symptoms. No neurological deficits. No bleeding issues on the continued anticoagulation. REVIEW OF SYSTEMS: Rest of 12-point system otherwise unremarkable. OBJECTIVE DATA: VITAL SIGNS: Blood pressure is 154/71, heart rate is 91, respirations 18, and temperature 97.0 degrees Fahrenheit. GENERAL: This is an alert and oriented elderly woman, in no apparent distress. NECK: Supple. Jugular veins not distended. CHEST: Coarse. No crackles. Mild wheeze is heard. HEART: Sounds are regular to rate and rhythm. I do not hear murmur or gallop. ABDOMEN: Benign. Bowel sounds positive. EXTREMITIES: Lower extremities without edema, clubbing, or cyanosis. Pulses are adequate. NEUROLOGIC: The patient is nonfocal. MUSCULOSKELETAL: Without joint swelling or deformity. SKIN: Without rash. DATABASE: EKG is reviewed, initially revealing sinus rhythm, rate of 120 beats per minute, narrow QRS, QTc 432 milliseconds. Subsequent EKG revealed development of atrial flutter, which appears to be typical isthmus dependent with 2:1 AV conduction, rate of 169 beats per minute. Subsequent telemetry strips reveal on and off atrial flutter throughout the hospital stay. LABORATORY DATA: White blood cell count 16.6, hemoglobin 12.7, and platelet count is 177. Sodium 135, potassium 3.7, BUN is 9, and creatinine is 0.58. Blood cultures negative x2. ASSESSMENT AND PLAN: Ms. Sidhu is a 69-year-old woman with history of advanced chronic obstructive pulmonary disease, who was admitted with COPD exacerbation/pneumonia with a sepsis picture, has well responded to cefepime and azithromycin as well as IV steroids. Now, her pulmonary status is stable, but she continues to have episodes of atrial flutter, which appears to be isthmus dependent typical atrial flutter. We spent some time explaining the nature of her atrial arrhythmias. I described the differential between atrial flutter versus fibrillation and she mostly is flutter. I explained the potential option of a cavotricuspid isthmus ablation, relatively a small ablation procedure with a low-risk profile. I think it is reasonable to proceed with the cavotricuspid isthmus ablation and assess her for additional arrhythmias. She has a remote history of medication or shock terminated tachycardia, possible SVT. We will assess her for that as well. Also, I explained the potential for atrial fibrillation even after flutter ablation is complete. Hence she is paroxysmal at this point, no further ANDREIA is planned. Risks and benefits are discussed. She understands and willing to proceed. We will schedule her for near date. Thank you again for allowing me to participate in the care of this patient. Job ID: [id number] MTDD
[2019-09-06] MEDS ORDERED: Heparin (Artline) 500 ML ONE (12:38)
[2019-09-06] MEDS ORDERED: Heparin 10,000 UNITS/1 ML VIAL ONE (12:39)
[2019-09-06] MEDS ORDERED: Lidocaine 1% PF 5 ML VIAL ONE (14:21)
[2019-09-06] MEDS ORDERED: DOPamine 400 MG/D5W 250 ML 250 ML ONE (15:09)
[2019-09-06] MEDS ORDERED: Midazolam HCl 2 mg/2 ml Vial ONE (15:35)
[2019-09-06] MEDS ORDERED: Propofol 500 MG/50 ML VIAL ONE (15:42)
--- NOTE | 2019-09-06 15:50 | PDOC.HOSPP ---
- Subjective Subjective: Doing well. Breathing well. - Objective Vital Signs & Weight: Vital Signs (12 hours) Temp Pulse Resp BP Pulse Ox 09/06/19 11:37 98 F 100 18 146/67 H 93 L 09/06/19 10:43 99 20 99 09/06/19 09:09 91 09/06/19 07:57 97.0 F L 91 18 154/71 H 94 L 09/06/19 07:15 75 18 98 09/06/19 05:29 97.8 F 94 20 179/84 H 95 Weight Weight 117 lb 8 oz Most Recent Monitor Data Heart Rate from ECG 117 NIBP 137/77 NIBP BP-Mean 97 Respiration from ECG 23 SpO2 94 I&O: 09/05/19 09/06/19 09/07/19 06:59 06:59 06:59 Intake Total 900 720 Output Total 2200 650 Balance -1300 70 Result Diagrams: 09/01/19 03:24 09/06/19 08:01 Hospitalist ROS - Medication Medications: Active Medications Generic Name Dose Route Start Last Admin Trade Name Freq PRN Reason Stop Dose Admin Acetaminophen 650 mg 08/31/19 14:04 09/05/19 15:28 Tylenol PO 650 mg Q4H PRN Administration Headache/Fever/Mild Pain (1-3) Hydrocodone Bitart/Acetaminophen 1 tab 08/31/19 14:04 09/02/19 16:02 [place] 5/325 PO 1 tab Q4H PRN Administration Moderate Pain (4-6) Benzonatate 200 mg 09/02/19 21:00 09/06/19 15:33 Tessalon PO Not Given TID TIFF Cefdinir 300 mg 09/02/19 09:00 09/06/19 09:10 Omnicef PO 300 mg BID TIFF Administration Diltiazem HCl 60 mg 09/03/19 21:00 09/06/19 09:09 Cardizem Sr PO 60 mg BID TIFF Administration Diphenhydramine HCl 50 mg 09/03/19 09:32 09/04/19 22:14 Benadryl PO 50 mg Q6H PRN Administration Itching & Insomnia Enoxaparin Sodium 50 mg 09/03/19 21:00 09/06/19 09:10 Lovenox SC Not Given 899,2099 TIFF Famotidine 20 mg 08/31/19 21:00 09/06/19 09:09 Pepcid PO 20 mg BID TIFF Administration Guaifenesin 600 mg 08/31/19 21:00 09/06/19 09:09 Mucinex PO 600 mg Q12HR TIFF Administration Guaifenesin 200 mg 08/31/19 14:04 09/03/19 10:52 Robitussin Sf PO 200 mg Q4H PRN Administration Cough Guaifenesin/Codeine Phosphate 10 ml 09/02/19 15:23 09/05/19 06:40 Robitussin Ac PO 10 ml Q4H PRN Administration Cough Ipratropium [place] 2.5 ml 09/03/19 10:42 09/05/19 14:06 Atrovent NEB 2.5 ml Q4H PRN Administration SOB &/or Wheezing Levalbuterol HCl 1.25 mg 09/03/19 14:30 09/06/19 13:58 Xopenex Conc NEB Not Given [id number] [facility] Levothyroxine Sodium 88 mcg 09/01/19 06:00 09/06/19 05:32 Synthroid PO 88 mcg 0600 [facility] Administration Lisinopril 5 mg 09/02/19 09:00 09/06/19 09:09 Zestril PO 5 mg DAILY [facility] Administration Methylprednisolone Sodium Succinate 20 mg 09/03/19 14:00 09/06/19 15:32 Solu-Medrol IVP Not Given Q8HR [facility] Metoclopramide HCl 5 mg 08/31/19 14:04 09/01/19 08:11 Reglan IVP 5 mg Q4H PRN Administration Nausea Mometasone Furoate/Formoterol Fumar 2 puff 08/31/19 18:30 09/06/19 07:16 Dulera 200 Mcg/5 Mcg Inhaler INH 2 puff BID-RT [facility] Administration Morphine Sulfate 4 mg 08/31/19 15:01 08/31/19 21:13 Morphine SLOW IVP 4 mg Q4H PRN Administration Chest Pain Saccharomyces Boulardii 250 mg 09/02/19 09:00 09/06/19 09:09 Florastor PO 250 mg DAILY TIFF Administration Sodium Chloride 0 ml 08/31/19 14:04 09/03/19 20:42 [place] Nasal [place] 0.65% EA NARE 1 spray QIDPRN PRN Administration Nasal Congestion Throat Lozenges 1 melissa 08/31/19 14:04 09/03/19 19:02 Cepastat Lozenges PO 1 melissa Q2H PRN Administration Sore Throat - Exam General Appearance: NAD, awake alert Neck: supple, symmetric, no JVD, no thyromegaly, no lymphadenopathy, no carotid bruit Heart: RRR, no murmur, no gallops, no rubs, normal peripheral pulses Respiratory: CTAB, no wheezes, no rales, no ronchi, normal chest expansion, no tachypnea, normal percussion Respiratory - other findings: Diminished slightly. Gastrointestinal: soft, non-tender, non-distended, normal bowel sounds, no palpable masses, no hepatomegaly, no splenomegaly, no bruit Extremities: no cyanosis, no clubbing, no edema Musculoskeletal: normal tone Psychiatric: normal affect, normal behavior, A&O x 3 Hosp A/P (1) Atrial flutter with rapid ventricular response Code(s): I48.92 - UNSPECIFIED ATRIAL FLUTTER Status: Acute (2) CAD (coronary artery disease) Code(s): I25.10 - ATHSCL HEART DISEASE OF [place] CORONARY ARTERY W/O ANG PCTRS Status: Chronic (3) COPD (chronic obstructive pulmonary disease) Status: Chronic (4) Dyslipidemia Code(s): E78.5 - HYPERLIPIDEMIA, UNSPECIFIED Status: Chronic (5) Hypertension Code(s): I10 - ESSENTIAL (PRIMARY) HYPERTENSION Status: Chronic (6) Sepsis Code(s): A41.9 - SEPSIS, UNSPECIFIED ORGANISM Status: Acute (7) Hypothyroidism Code(s): E03.9 - HYPOTHYROIDISM, UNSPECIFIED Status: Acute - Plan Continue nebs, steroids PO omnicef. Long discussion regarding anticoagulation. She prefers to stay on Eliquis for now. Can have the 30 trial on discharge and the follow up with Dr. Galo and Kell and check with her insurance to see if that will be viable long-term.
--- NOTE | 2019-09-06 16:33 | OP ---
DATE OF PROCEDURE: 09/06/2019 PROCEDURES PERFORMED: Electrophysiology study and radiofrequency ablation. REASON FOR PROCEDURE: Ms. Sidhu is a 69-year-old woman, history of advanced COPD, came in with a COPD exacerbation/mild pneumonia, which is now improving with antibiotic therapy. On the other hand, she also developed paroxysmal typical atrial flutter with very rapid rate, although episodically returning to sinus rhythm. She has remote history of a drug terminated tachycardia as well. Here for ablation of typically appearing likely isthmus dependent atrial flutter. DESCRIPTION OF PROCEDURE: The patient received deep sedation by anesthesia specialist. The right femoral venous area was prepped, draped, and anesthetized using subcutaneous lidocaine. Under ultrasound guidance, the right femoral vein was cannulated x2. Two 8-Indonesian short sheath was introduced through which a ThermoCool SFST catheter and a decapolar pace sense map catheter was advanced to the right atrium, right ventricle, His bundle, and CS position. Pacing mapping and recording was performed at each location including pacing the left atrium via the CS and pacing the right ventricle. Following findings were noted; baseline rhythm was sinus rhythm with RR interval of 640 milliseconds, SC interval 138 milliseconds, QRS 173 milliseconds, QT of 292 milliseconds, AH 111 milliseconds, and HV 48 milliseconds. Sinus node recovery time was 1091. Corrected sinus node recovery time was measured to 480 milliseconds. Ventricular pacing was performed, but there is no VA conduction was seen. AV Wenckebach cycle length was noted at 270 milliseconds. Burst atrial pacing did not induce atrial arrhythmias. Due to atypical appearing isthmus dependent morphology of the clinical EKGs, decision was made to perform cavotricuspid isthmus ablation. 3D map for right atrium, His bundle, and CS positions were obtained with a ThermoCool SFST catheter. Following that, radiofrequency ablation was delivered, total of 6 lesions at 2 minutes and 44 seconds. This ablation successfully prolonged the transisthmus time over 120 millisecond. Isthmus block was demonstrated by longest transisthmus time adjacent to the ablation line. Dopamine was administered at this point and no reconnection was noted. In the end of the case, cardiac silhouette did not change. Catheter was removed and the patient tolerated the procedure well. No complications noted. CONCLUSION: 1. Successful cavotricuspid isthmus ablation. 2. No inducible arrhythmias. 3. Borderline sinus lily function. 4. Normal AV lily function. 5. No evidence of accessory pathway. PLAN: Continue to monitor for recurrent arrhythmias. Optimize pulmonary status. Consider anticoagulation if recurrent atrial fibrillation or flutter is seen. Job ID: [id number]
--- NOTE | 2019-09-06 20:03 | PRG ---
DATE OF SERVICE: 09/06/2019 SUBJECTIVE: Ms. Sidhu did well over the weekend. She had an atrial flutter ablation. OBJECTIVE: VITAL SIGNS: She is afebrile, heart rate is in the 80s, respiratory rate is 18, oximetry is 96% on 2 L, blood pressure 179/84. LUNGS: Surprisingly clear today compared to Friday. HEART: Regular rhythm. ABDOMEN: Soft. IMPRESSION: 1. Pneumonia with chronic obstructive pulmonary disease exacerbation. 2. Atrial flutter, status post ablation. Clinically doing well. We will continue to follow her. We need to increase her activity level. She probably could go home on Friday. Job ID: [id number]
[2019-09-06] MEDS: guaiFENesin/Codeine Phosphate 200 mg/20 mg 10 ml UD Cup PO PRN (22:44)
[2019-09-07] MEDS: Levalbuterol HCl 1.25 MG/0.5 ML NEB NEB SCH ×6 (01:45→21:34)
[2019-09-07] MEDS: Levothyroxine Sodium 88 MCG TAB PO SCH (05:35)
[2019-09-07] MEDS: methylPREDNISolone Sod Succ 40 MG VIAL IVP SCH ×2 (05:35→15:01)
[2019-09-07] MEDS: Mometasone/Formoterol 120 PUFF INHALER INH SCH ×2 (07:11→18:30)
[2019-09-07] MEDS: Benzonatate 100 MG CAP PO SCH ×3 (08:58→20:23)
[2019-09-07] MEDS: Enoxaparin Sodium 60 MG/0.6 ML SYRINGE SC SCH (08:58)
[2019-09-07] MEDS: Diltiazem HCl SR 60 mg Capsule PO SCH ×2 (08:58→20:23)
[2019-09-07] MEDS: Cefdinir 300 MG CAP PO SCH ×2 (08:58→20:23)
[2019-09-07] MEDS: Famotidine 20 MG TAB PO SCH ×2 (08:59→20:23)
[2019-09-07] MEDS: Lisinopril 5 MG TAB PO SCH (08:59)
[2019-09-07] MEDS: guaiFENesin ER 600 MG TAB PO SCH ×2 (08:59→20:23)
[2019-09-07] MEDS: Saccharomyces boulardii 250 MG CAP PO SCH (08:59)
--- NOTE | 2019-09-07 17:04 | PDOC.EP ---
- Subjective Date: 09/07/19 Time: 08:00 Interval History: follow up for atrial flutter s/p CTI ablation. No cardiac concerns over HS. Feel great today. - Review of Systems Constitutional: denies: chills, fever, malaise, sweats, weakness, other Respiratory: denies: cough, dry, hemoptysis, pleuritic pain, shortness of breath , SOB with excertion, sputum, wheezing, other Cardiology: denies: chest pain, edema, heart racing, light headedness, paroxysmal noc. dyspnea, orthopnea, palpitations, passing out, pleuritic pain, pressure, swelling, other Musculoskeletal: denies: unstable gait, shoulder pain, leg pain, foot pain - Objective Allergies/Adverse Reactions: Allergies Allergy/AdvReac Type Severity Reaction Status Date / Time No Known Allergies Allergy Verified 01/23/19 16:21 Current Medications Acetaminophen (Tylenol) 650 mg PO Q4H PRN PRN Reason: Headache/Fever/Mild Pain (1-3) Last Admin: 09/05/19 15:28 Dose: 650 mg Hydrocodone Bitart/Acetaminophen ([place] 5/325) 1 tab PO Q4H PRN PRN Reason: Moderate Pain (4-6) Last Admin: 09/02/19 16:02 Dose: 1 tab Albuterol/Ipratropium (Duoneb) 3 ml NEB Q2H PRN PRN Reason: SOB &/or Wheezing Artificial Tears (Tears Naturale) 2 drop EA EYE PRN PRN PRN Reason: Dry Eyes Benzonatate (Tessalon) 200 mg PO TID [facility] Last Admin: 09/07/19 15:02 Dose: 200 mg Bisacodyl (Dulcolax) 10 mg NC DAILYPRN PRN PRN Reason: Constipation Cefdinir (Omnicef) 300 mg PO BID [facility] Last Admin: 09/07/19 08:58 Dose: 300 mg Diltiazem HCl (Cardizem Sr) 60 mg PO BID [facility] Last Admin: 09/07/19 08:58 Dose: 60 mg Diphenhydramine HCl (Benadryl) 50 mg PO Q6H PRN PRN Reason: Itching & Insomnia Last Admin: 09/04/19 22:14 Dose: 50 mg Enoxaparin Sodium (Lovenox) 50 mg SC 0900,2100 [facility] Last Admin: 09/07/19 08:58 Dose: 50 mg Famotidine (Pepcid) 20 mg PO BID [facility] Last Admin: 09/07/19 08:59 Dose: 20 mg Guaifenesin (Mucinex) 600 mg PO Q12HR [facility] Last Admin: 09/07/19 08:59 Dose: 600 mg Guaifenesin (Robitussin Sf) 200 mg PO Q4H PRN PRN Reason: Cough Last Admin: 09/03/19 10:52 Dose: 200 mg Guaifenesin/Codeine Phosphate (Robitussin Ac) 10 ml PO Q4H PRN PRN Reason: Cough Last Admin: 09/06/19 22:44 Dose: 10 ml Hydralazine HCl (Apresoline) 10 mg SLOW IVP Q4H PRN PRN Reason: SBP > 180 and HR < 70 Ipratropium [place] (Atrovent) 2.5 ml NEB Q4H PRN PRN Reason: SOB &/or Wheezing Last Admin: 09/05/19 14:06 Dose: 2.5 ml Levalbuterol HCl (Xopenex Conc) 1.25 mg NEB Q3EY-UG [facility] Last Admin: 09/07/19 14:53 Dose: 1.25 mg Levothyroxine Sodium (Synthroid) 88 mcg PO 0600 [facility] Last Admin: 09/07/19 05:35 Dose: 88 mcg Lisinopril (Zestril) 5 mg PO DAILY [facility] Last Admin: 09/07/19 08:59 Dose: 5 mg Loperamide HCl (Imodium) 2 mg PO PRN PRN PRN Reason: Diarrhea/Loose Stools Loratadine (Claritin) 10 mg PO DAILYPRN PRN PRN Reason: Sinus Symptoms Methylprednisolone Sodium Succinate (Solu-Medrol) 20 mg IVP Q8HR [facility] Last Admin: 09/07/19 15:01 Dose: 20 mg Metoclopramide HCl (Reglan) 5 mg IVP Q4H PRN PRN Reason: Nausea Last Admin: 09/01/19 08:11 Dose: 5 mg Mometasone Furoate/Formoterol Fumar (Dulera 200 Mcg/5 Mcg Inhaler) 2 puff INH BID-RT [facility] Last Admin: 09/07/19 07:11 Dose: 2 puff Morphine Sulfate (Morphine) 4 mg SLOW IVP Q4H PRN PRN Reason: Chest Pain Last Admin: 08/31/19 21:13 Dose: 4 mg Saccharomyces Boulardii (Florastor) 250 mg PO DAILY TIFF Last Admin: 09/07/19 08:59 Dose: 250 mg Senna/Docusate Sodium (Senokot S) 2 tab PO BIDPRN PRN PRN Reason: Constipation Sodium Chloride ([place] Nasal [place] 0.65%) 0 ml EA NARE QIDPRN PRN PRN Reason: Nasal Congestion Last Admin: 09/03/19 20:42 Dose: 1 spray Sterile Water (Bacteriostatic Water) 1 ml FS PRN PRN PRN Reason: RECONSTITUTION Throat Lozenges (Cepastat Lozenges) 1 melissa PO Q2H PRN PRN Reason: Sore Throat Last Admin: 09/03/19 19:02 Dose: 1 melissa Vital Signs & Weight: Vital Signs Temp Pulse Resp BP Pulse Ox 09/07/19 15:00 97.2 F L 89 20 137/88 96 09/07/19 14:53 80 16 09/07/19 11:51 98.2 F 99 19 160/74 H 92 L 09/07/19 10:54 80 16 09/07/19 07:18 97.8 F 88 19 149/73 H 96 Weight 116 lb 4.8 oz I/O: I/O 09/06/19 09/07/19 09/08/19 06:59 06:59 06:59 Intake Total 720 510 Output Total 650 2 Balance 70 508 - Quality Measures Condition: Atrial Fibrillation/Flutter (hx or current) CV meds: Eliquis: Yes (x 30 days) - Physical Exam General: alert & oriented x3, appears well, no apparent distress, speech clear, affect appropriate HEENT: mucus membranes moist, normocephaly Neck: supple neck, midline trachea, no JVD/HJR, no masses, no bruit, no lymphadenopathy, no thromegaly Cardiology: regular rate and rhythm, no murmur, PMI nondisplaced Lungs: clear to auscultation, normal breath sounds, no wheeze, rales, rhonchi Neurology: cranial nerve 2-12 intact, grossly intact, no lateralizing findings Abdomen: unremarkable, active bowel sounds, soft, no masses, no hepatosplenomegaly, HJR negative Extremities: dry, strong pulses, warm Skin: groin sites stable. negative: bruising, drainage, erosion, hematoma, swelling - Chadsvasc Risk factors Age 65-74: 1 Female: 1 Risk Score: 2 - Labs Result Diagrams: 09/01/19 03:24 09/06/19 08:01 - EKG Interpretation EKG Method: Telemetry EKG shows: Sinus rhythm - Assessment/Plan Assessment/Plan: 1. Typical atrial flutter -s/p EP study and CTI flutter ablation - no A Fib seen during EPS - 30 days OAC then ASA if no further atrial arrythmias are seen - changed to eliquis 5 mg BID starting 1/14 PM borderline AV node and SA node function. OK for DC by EP. week follow up to be arranged.
[2019-09-07] MEDS: Apixaban 5 MG TAB PO SCH (20:23)
[2019-09-07] MEDS: Cepastat Lozenges 1 LOZ PO PRN (20:23)
[2019-09-08] MEDS: Levalbuterol HCl 1.25 MG/0.5 ML NEB NEB SCH ×3 (01:54→10:30)
[2019-09-08 04:40] LABS: Hemoglobin 13.7 g/dL (12.0-16.0); Platelet Count 246 thou/uL (130-400)
[2019-09-08] MEDS: Levothyroxine Sodium 88 MCG TAB PO SCH (05:44)
[2019-09-08 07:13] VITALS: BP 163/66; TEMP 98.2
[2019-09-08] MEDS: Mometasone/Formoterol 120 PUFF INHALER INH SCH (07:54)
[2019-09-08] MEDS: Cefdinir 300 MG CAP PO SCH (07:56)
[2019-09-08] MEDS: Apixaban 5 MG TAB PO SCH (07:56)
[2019-09-08] MEDS: Benzonatate 100 MG CAP PO SCH (07:56)
[2019-09-08] MEDS: Famotidine 20 MG TAB PO SCH (07:57)
[2019-09-08] MEDS: Diltiazem HCl SR 60 mg Capsule PO SCH (07:57)
[2019-09-08] MEDS: Saccharomyces boulardii 250 MG CAP PO SCH (07:57)
[2019-09-08] MEDS: guaiFENesin ER 600 MG TAB PO SCH (07:57)
[2019-09-08] MEDS: Lisinopril 5 MG TAB PO SCH (07:57)
[2019-09-08] MEDS ORDERED: predniSONE 20 MG TAB PO SCH (08:00)
--- NOTE | 2019-09-08 08:13 | PRG ---
DATE OF SERVICE: 09/07/2019 SUBJECTIVE: Ashley Sidhu has no complaints. She feels that she might be getting thrush; therefore will start some Diflucan for her. She has had no fatigue, chills, or sweats. She actually says she feels great after atrial flutter ablation. She is hoping to go home tomorrow. OBJECTIVE: VITAL SIGNS: Have been stable. LUNGS: Clear. HEART: Regular rhythm. ABDOMEN: Soft. IMPRESSION: 1. Chronic obstructive pulmonary disease exacerbation with pneumonia. 2. Thrush secondary to steroids. 3. Atrial flutter, status post ablation. Clinically doing well. We will take her off IV steroids today and put her on oral prednisone. Job ID: [id number]
[2019-09-08] MEDS ORDERED: Fluconazole 100 MG TAB PO SCH (09:00)
--- NOTE | 2019-09-08 09:37 | PDOC.HOSPP ---
- Subjective Encounter Date: 09/07/19 Subjective: Doing very well. Breathing comfortably off oxygen. No other complaints. - Objective Vital Signs & Weight: Vital Signs (12 hours) Temp Pulse Resp BP Pulse Ox 09/08/19 07:57 92 L 09/08/19 07:56 62 16 92 L 09/08/19 07:54 113 H 16 92 L 09/08/19 07:08 98.2 F 95 20 163/66 H 92 L 09/08/19 03:20 98.5 F 95 18 129/71 93 L 09/08/19 01:54 96 Weight Weight 115 lb 3.2 oz Most Recent Monitor Data Heart Rate from ECG 117 NIBP 137/77 NIBP BP-Mean 97 Respiration from ECG 23 SpO2 94 I&O: 09/07/19 09/08/19 09/09/19 06:59 06:59 06:59 Intake Total 510 1920 Output Total 2 Balance 508 1920 Result Diagrams: 09/08/19 04:17 09/08/19 04:17 Hospitalist ROS - Medication Medications: Active Medications Generic Name Dose Route Start Last Admin Trade Name Freq PRN Reason Stop Dose Admin Acetaminophen 650 mg 08/31/19 14:04 09/05/19 15:28 Tylenol PO 650 mg Q4H PRN Administration Headache/Fever/Mild Pain (1-3) Hydrocodone Bitart/Acetaminophen 1 tab 08/31/19 14:04 09/02/19 16:02 [place] 5/325 PO 1 tab Q4H PRN Administration Moderate Pain (4-6) Apixaban 5 mg 09/07/19 21:00 09/08/19 07:56 Eliquis PO 5 mg BID TIFF Administration Benzonatate 200 mg 09/02/19 21:00 09/08/19 07:56 Tessalon PO 200 mg TID TIFF Administration Cefdinir 300 mg 09/02/19 09:00 09/08/19 07:56 Omnicef PO 300 mg BID TIFF Administration Diltiazem HCl 60 mg 09/03/19 21:00 09/08/19 07:57 Cardizem Sr PO 60 mg BID TIFF Administration Diphenhydramine HCl 50 mg 09/03/19 09:32 09/04/19 22:14 Benadryl PO 50 mg Q6H PRN Administration Itching & Insomnia Famotidine 20 mg 08/31/19 21:00 09/08/19 07:57 Pepcid PO 20 mg BID TIFF Administration Fluconazole 100 mg 09/08/19 09:00 09/08/19 07:57 Diflucan PO 100 mg DAILY TIFF Administration Guaifenesin 600 mg 08/31/19 21:00 09/08/19 07:57 Mucinex PO 600 mg Q12HR TIFF Administration Guaifenesin 200 mg 08/31/19 14:04 09/03/19 10:52 Robitussin Sf PO 200 mg Q4H PRN Administration Cough Guaifenesin/Codeine Phosphate 10 ml 09/02/19 15:23 09/06/19 22:44 Robitussin Ac PO 10 ml Q4H PRN Administration Cough Ipratropium [place] 2.5 ml 09/03/19 10:42 09/05/19 14:06 Atrovent NEB 2.5 ml Q4H PRN Administration SOB &/or Wheezing Levalbuterol HCl 1.25 mg 09/03/19 14:30 09/08/19 07:56 Xopenex Conc NEB 1.25 mg [id number] TIFF Administration Levothyroxine Sodium 88 mcg 09/01/19 06:00 09/08/19 05:44 Synthroid PO 88 mcg 0600 TIFF Administration Lisinopril 5 mg 09/02/19 09:00 09/08/19 07:57 Zestril PO 5 mg DAILY TIFF Administration Metoclopramide HCl 5 mg 08/31/19 14:04 09/01/19 08:11 Reglan IVP 5 mg Q4H PRN Administration Nausea Mometasone Furoate/Formoterol Fumar 2 puff 08/31/19 18:30 09/08/19 07:54 Dulera 200 Mcg/5 Mcg Inhaler INH 2 puff BID-RT TIFF Administration Morphine Sulfate 4 mg 08/31/19 15:01 08/31/19 21:13 Morphine SLOW IVP 4 mg Q4H PRN Administration Chest Pain Prednisone 40 mg 09/08/19 08:00 09/08/19 07:56 Prednisone PO 40 mg QAM-WM TIFF Administration Saccharomyces Boulardii 250 mg 09/02/19 09:00 09/08/19 07:57 Florastor PO 250 mg DAILY TIFF Administration Sodium Chloride 0 ml 08/31/19 14:04 09/03/19 20:42 Guion Nasal [place] 0.65% EA NARE 1 spray QIDPRN PRN Administration Nasal Congestion Throat Lozenges 1 melissa 08/31/19 14:04 09/07/19 20:23 Cepastat Lozenges PO 1 melissa Q2H PRN Administration Sore Throat - Exam General Appearance: NAD, awake alert Heart: RRR, no murmur, no gallops, no rubs, normal peripheral pulses Respiratory: CTAB, no wheezes, no rales, no ronchi, normal chest expansion, no tachypnea, normal percussion Gastrointestinal: soft, non-tender, non-distended, normal bowel sounds, no palpable masses, no hepatomegaly, no splenomegaly, no bruit Skin: normal turgor Neurological: no focal deficits Musculoskeletal: normal tone Psychiatric: normal affect, normal behavior, A&O x 3 Hosp A/P (1) Atrial flutter with rapid ventricular response Code(s): I48.92 - UNSPECIFIED ATRIAL FLUTTER Status: Acute (2) CAD (coronary artery disease) Code(s): I25.10 - ATHSCL HEART DISEASE OF [place] CORONARY ARTERY W/O ANG PCTRS Status: Chronic (3) COPD (chronic obstructive pulmonary disease) Status: Chronic Qualifiers: COPD type: COPD with acute exacerbation Qualified Code(s): J44.1 - Chronic obstructive pulmonary disease with (acute) exacerbation (4) Dyslipidemia Code(s): E78.5 - HYPERLIPIDEMIA, UNSPECIFIED Status: Chronic (5) Hypertension Code(s): I10 - ESSENTIAL (PRIMARY) HYPERTENSION Status: Chronic (6) Sepsis Code(s): A41.9 - SEPSIS, UNSPECIFIED ORGANISM Status: Acute (7) Hypothyroidism Code(s): E03.9 - HYPOTHYROIDISM, UNSPECIFIED Status: Acute (8) Acute respiratory failure with hypoxia Code(s): J96.01 - ACUTE RESPIRATORY FAILURE WITH HYPOXIA Status: Acute - Plan Continue nebs, steroids PO omnicef. Post-ablation. Doing very well. Weaned off oxygen. If stable, anticipate DC tomorrow. She will be on anticoag for one month post discharge.
--- NOTE | 2019-09-08 17:42 | EKG ---
Test Reason : Blood Pressure : / mmHG Vent. Rate : 169 BPM Atrial Rate : 338 BPM P-R Int : 000 ms QRS Dur : 074 ms QT Int : 264 ms P-R-T Axes : 256 052 -68 degrees QTc Int : 442 ms Atrial flutter with 2:1 A-V conduction Marked ST abnormality, possible inferior subendocardial injury Abnormal ECG When compared with ECG of 31-AUG-2019 08:06, (Unconfirmed) Atrial flutter has replaced Sinus rhythm ST now depressed in Inferior leads ST more depressed in Anterior leads Nonspecific T wave abnormality now evident in Inferior leads Nonspecific T wave abnormality now evident in Lateral leads Confirmed by DR. Neo GRIFFIN ([id number]) on 09/08/2019 5:42:35 PM Referred By: TEOFILO Confirmed By:DR. Neo GRIFFIN
--- NOTE | 2019-09-08 17:47 | EKG ---
Test Reason : Blood Pressure : / mmHG Vent. Rate : 128 BPM Atrial Rate : 096 BPM P-R Int : 000 ms QRS Dur : 078 ms QT Int : 298 ms P-R-T Axes : 000 055 036 degrees QTc Int : 435 ms Atrial fibrillation with rapid ventricular response Nonspecific ST abnormality Abnormal ECG When compared with ECG of 03-SEP-2019 09:36, (Unconfirmed) Atrial fibrillation has replaced Atrial flutter ST no longer depressed in Inferior leads Nonspecific T wave abnormality no longer evident in Lateral leads Confirmed by DR. Neo GRIFFIN ([id number]) on 09/08/2019 5:47:36 PM Referred By: JENA Confirmed By:DR. Neo GRIFFIN
--- NOTE | 2019-09-10 13:49 | DIS ---
DATE OF ADMISSION: 08/31/2019 DATE OF DISCHARGE: 09/08/2019 DISCHARGE DIAGNOSES: 1. Sepsis. 2. Pneumonia. 3. Acute hypoxic respiratory failure. 4. Chronic obstructive pulmonary disease with exacerbation. 5. Atrial flutter with rapid ventricular response. 6. Diastolic dysfunction. 7. Coronary artery disease. 8. Hypothyroidism. 9. Hypertension. 10. Hyperlipidemia. HISTORY: This patient is a 69-year-old female, who presented to the hospital via the emergency department reporting increased shortness of breath. Reports she is chronically short of breath, but had substantial worsening. She was hypoxic, tachypneic and tachycardic and leukocytosis with left shift. Chest x-ray showed right lower lobe pneumonia. CT was negative for PE. HOSPITAL COURSE: The patient was admitted to the ICU, given oxygenation support , started on broad-spectrum antibiotics, steroids and nebulizer treatments. She was seen in consultation by Dr. Mcneil who is her primary transit man. With these interventions, the patient did have some improvement and was able to transition out of the ICU; however, she subsequently developed some atypical atrial flutter with 2 to 1 pattern. She was treated with calcium channel blockers initially with some improvement, but subsequently had a recurrence. Echocardiogram revealed an ejection fraction of 60% to 65% with grade 1 diastolic dysfunction. She was seen in consultation by Dr. Vega and subsequently agreed to undergo ablation which she did successfully on 09/06/2019. Following that, the patient was able to wean off her supplemental oxygen and was felt to be stable for discharge. She did have mild exertional hypoxia; however, the patient was not interested in pursuing home oxygen. Dr. Mcneil was comfortable with the patient not having home oxygen as long as her resting saturations were above 90%. With that, she was felt to be stable for discharge. PHYSICAL EXAMINATION: VITAL SIGNS: At time of discharge, temperature 98.2, pulse 62, respirations 16 , O2 sats 92% on room air. BP was 163/66. GENERAL: She was awake and alert. HEART: Regular rate and rhythm. LUNGS: Slightly diminished, but clear with no wheezes or rales. ABDOMEN: Benign. EXTREMITIES: No edema. DISPOSITION: The patient is discharged to home. MEDICATIONS: Prescriptions will include: 1. Eliquis 5 mg one p.o. b.i.d. 2. Omnicef 300 mg p.o. b.i.d. 3. Diltiazem SR 60 mg b.i.d. 4. Diflucan 100 mg daily. 5. Prednisone 40 mg daily. 6. Florastor 250 mg daily. She will continue with her 1. Atrovent inhaler p.r.n. 2. Ventolin inhaler p.r.n. 3. Symbicort 160-4.5 one inhalation daily. 4. Alendronate 70 mg q.week. 5. Vitamin D3 2000 units at bedtime. 6. Multivitamin one daily. 7. Calcium with vitamin D2 p.o. daily. 8. Vitamin C 500 mg daily. 9. Atorvastatin 80 mg at bedtime. 10. Metoprolol 25 mg daily. 11. Lisinopril 5 mg daily. 12. Levothyroxine 88 mcg daily. 13. Breo Ellipta 200-25 one inhalation daily. 14. Bentyl p.r.n. 15. Zofran p.r.n. 16. Pantoprazole 40 mg daily. 17. Simethicone p.r.n. ACTIVITY: As tolerated. DIET: She will remain on a heart healthy diet. FOLLOWUP: She will follow up with Dr. Johann Castorena in [address] Vega in 2 to [address] Mcneil in 2 to 3 weeks. She can return to the hospital at anytime should she have the need to do so. TIME SPENT: Total time in discharge activities was 41 minutes. Job ID: [id number] MTDD
--- NOTE | 2019-09-11 15:11 | EKG ---
Test Reason : Blood Pressure : / mmHG Vent. Rate : 120 BPM Atrial Rate : 120 BPM P-R Int : 136 ms QRS Dur : 076 ms QT Int : 306 ms P-R-T Axes : 075 065 067 degrees QTc Int : 432 ms Sinus tachycardia Nonspecific ST abnormality Abnormal ECG Confirmed by BRITTNEY VARELA M.D. ([id number]), publication editor SHERRY OTOOLE ([id number]) on 09/11/2019 3:10:53 PM Referred By: Confirmed By:BRITTNEY VARELA M.D.
--- NOTE | 2019-09-14 09:30 | EKG ---
Test Reason : Blood Pressure : / mmHG Vent. Rate : 082 BPM Atrial Rate : 082 BPM P-R Int : 138 ms QRS Dur : 076 ms QT Int : 350 ms P-R-T Axes : 074 055 062 degrees QTc Int : 408 ms Normal sinus rhythm Normal ECG When compared with ECG of 06-SEP-2019 16:37, (Unconfirmed) Premature atrial complexes are no longer Present Confirmed by KATALINA VELEZ ([id number]) on 09/14/2019 9:29:46 AM Referred By: DEBRA Confirmed By:KATALINA VELEZ
== END 2019-09-08 11:55 | disposition home or self-care (01) | DRG 853 ==
LOC: ERS 07:57 → ERHOLD 10:16 → IMCU/EMU 14:23 → T4-A 09-02 18:10 → 2NO 09-03 09:51
PROVIDERS: ADMIT Internal Medicine; ATTEND Internal Medicine
PROC: 02583ZZ Destruction of Conduction Mechanism, Percutaneous Approach (ICD-10-PCS; principal; 2019-09-06)
PROC: 4A023FZ Measurement of Cardiac Rhythm, Percutaneous Approach (ICD-10-PCS; 2019-09-06)
PROC: 4A0234Z Measurement of Cardiac Electrical Activity, Percutaneous Approach (ICD-10-PCS; 2019-09-06)
PROC: 02K83ZZ Map Conduction Mechanism, Percutaneous Approach (ICD-10-PCS; 2019-09-06)
DX: A41.9 Sepsis, unspecified organism (principal); J96.01 Acute respiratory failure with hypoxia; J18.9 Pneumonia, unspecified organism; I21.A1 Myocardial infarction type 2; J44.0 Chronic obstructive pulmonary disease with (acute) lower respiratory infection; J44.1 Chronic obstructive pulmonary disease with (acute) exacerbation; I48.4 Atypical atrial flutter; I10 Essential (primary) hypertension; E78.5 Hyperlipidemia, unspecified; E03.9 Hypothyroidism, unspecified; I25.10 Atherosclerotic heart disease of native coronary artery without angina pectoris; M81.0 Age-related osteoporosis without current pathological fracture; Z79.82 Long term (current) use of aspirin; Z87.891 Personal history of nicotine dependence; Z98.42 Cataract extraction status, left eye; Z98.41 Cataract extraction status, right eye
CPT/HCPCS: 36415; 71045; 71275; 76942; 80048; 80053; 80076; 81003; 82565; 82805; 83605; 83735; 83880; 84132; 84443; 84484; 85014; 85018; 85025; 85049; 87040; 87086; 87804; 93005; 93010; 93306; 93613; 93621; 93623; 93653; 94640; 94660; 96361; 96365; 96374; 96375; 99292; C1732; C1769; J0456; J0692; J0696; J1265; J1644; J1650; J2001; J2250; J2270; J2704; J2765; J2920; J2930; J3010; J3475; J3490; J7050; J7512; J7611; J7612; J7620; Q0163; Q9967; S0028

== ENCOUNTER 2019-09-30 08:31 | Outpatient (CLI) | payer MEDICARE, OTHER ==
--- NOTE | 2019-09-30 08:51 | RAD ---
XR Chest Pa Lat @ [facility] HISTORY: Dyspnea COMPARISON: 08/31/2019 and 03/30/2019 FINDINGS: The heart size is normal. The lungs are well expanded without focal areas of consolidation, pneumothorax or pleural effusions. IMPRESSION: No radiographic evidence of acute cardiopulmonary process.
== END 2019-09-30 08:32 | disposition home or self-care (01) ==
LOC: RAD 08:31
PROVIDERS: ATTEND Internal Medicine Critical Care Medicine
DX: R06.00 Dyspnea, unspecified (principal)
CPT/HCPCS: 71046

== ENCOUNTER 2021-05-28 15:10 | Outpatient (CLI) | payer MEDICARE, OTHER | END 2021-05-28 15:11 | disposition home or self-care (01) | LOC: BICMAMMO 15:10 | PROVIDERS: ATTEND Internal Medicine | DX: Z12.31 Encounter for screening mammogram for malignant neoplasm of breast (principal) | CPT/HCPCS: 77063; 77067 ==

== ENCOUNTER 2022-01-24 09:28 | Outpatient (CLI) | payer MEDICARE, OTHER | END 2022-01-24 09:29 | disposition home or self-care (01) | LOC: RAD 09:28 | PROVIDERS: ATTEND Internal Medicine Critical Care Medicine | DX: R06.00 Dyspnea, unspecified (principal); R91.8 Other nonspecific abnormal finding of lung field | CPT/HCPCS: 71046 ==

== ENCOUNTER 2022-05-29 10:36 | Outpatient (CLI) | payer MEDICARE, OTHER | END 2022-05-29 10:37 | disposition home or self-care (01) | LOC: RAD 10:36 | PROVIDERS: ATTEND Internal Medicine Critical Care Medicine | DX: R06.09 Other forms of dyspnea (principal) | CPT/HCPCS: 71046 ==

== ENCOUNTER 2022-06-10 09:54 | Outpatient (CLI) | payer MEDICARE, OTHER | END 2022-06-10 09:55 | disposition home or self-care (01) | LOC: BICMAMMO 09:54 | PROVIDERS: ATTEND Internal Medicine | DX: Z12.31 Encounter for screening mammogram for malignant neoplasm of breast (principal) | CPT/HCPCS: 77063; 77067 ==

== ENCOUNTER 2022-10-15 10:08 | Day surgery (SDC) | payer MEDICARE, OTHER ==
[2022-10-15] MEDS ORDERED: Ipratropium/Albuterol 3 ML NEB ONE (10:53)
[2022-10-15] MEDS ORDERED: Ondansetron PF 4 MG/2 ML Vial ONE (11:48)
[2022-10-15] MEDS ORDERED: PROPOFOL 200 MG/20 ML VIAL ONE (13:22)
== END 2022-10-15 14:24 | disposition home or self-care (01) ==
LOC: SDC 10:08
PROVIDERS: ATTEND Internal Medicine Gastroenterology
PROC: 0DBK8ZX Excision of Ascending Colon, Via Natural or Artificial Opening Endoscopic, Diagnostic (ICD-10-PCS; principal; 2022-10-15)
DX: Z12.11 Encounter for screening for malignant neoplasm of colon (principal); D12.2 Benign neoplasm of ascending colon; K57.30 Diverticulosis of large intestine without perforation or abscess without bleeding; J44.9 Chronic obstructive pulmonary disease, unspecified; E78.00 Pure hypercholesterolemia, unspecified; I10 Essential (primary) hypertension; E03.9 Hypothyroidism, unspecified; Z86.010 Personal history of colon polyps; Z87.891 Personal history of nicotine dependence; Z79.899 Other long term (current) drug therapy; Z79.890 Hormone replacement therapy
CPT/HCPCS: 88305; J2405; J2704; J7620

== ENCOUNTER 2023-03-05 07:53 | Outpatient (CLI) | payer MEDICARE | END 2023-03-05 07:54 | disposition home or self-care (01) | LOC: RAD 07:53 | PROVIDERS: ATTEND Internal Medicine Critical Care Medicine | DX: R06.00 Dyspnea, unspecified (principal); J44.9 Chronic obstructive pulmonary disease, unspecified | CPT/HCPCS: 71046 ==

== ENCOUNTER 2023-05-27 09:10 | Outpatient (CLI) | payer MEDICARE | END 2023-05-27 09:11 | disposition home or self-care (01) | LOC: BICMAMMO 09:10 | PROVIDERS: ATTEND Internal Medicine | DX: Z13.820 Encounter for screening for osteoporosis (principal); M81.0 Age-related osteoporosis without current pathological fracture | CPT/HCPCS: 77080 ==

== ENCOUNTER 2023-06-24 09:46 | Outpatient (CLI) | payer MEDICARE | END 2023-06-24 09:47 | disposition home or self-care (01) | LOC: BICMAMMO 09:46 | PROVIDERS: ATTEND Internal Medicine | DX: Z12.31 Encounter for screening mammogram for malignant neoplasm of breast (principal) | CPT/HCPCS: 77063; 77067 ==

== ENCOUNTER 2024-06-25 09:21 | Outpatient (CLI) | payer MEDICARE | END 2024-06-25 09:22 | disposition home or self-care (01) | LOC: BICMAMMO 09:21 | PROVIDERS: ATTEND Internal Medicine | DX: Z12.31 Encounter for screening mammogram for malignant neoplasm of breast (principal); Z80.3 Family history of malignant neoplasm of breast | CPT/HCPCS: 77063; 77067 ==

== ENCOUNTER 2025-05-27 09:22 | Outpatient (CLI) | payer OTHER | END 2025-05-27 09:23 | disposition home or self-care (01) | LOC: RAD 09:22 | PROVIDERS: ATTEND Internal Medicine Critical Care Medicine | DX: R06.00 Dyspnea, unspecified (principal) | CPT/HCPCS: 71046 ==

== ENCOUNTER 2025-06-10 07:26 | Day surgery (SDC) | payer OTHER ==
[2025-06-09 09:32] VITALS: BMI 18.9
[2025-06-10] MEDS ORDERED: PROPOFOL 20 ML ONE (09:25)
[2025-06-10] MEDS ORDERED: Lidocaine 1% PF 5 ML VIAL ONE (09:26)
[2025-06-10] MEDS ORDERED: GLYCOPYRROLATE/PF 0.2 MG/ML VIAL ONE (09:27)
[2025-06-10] MEDS ORDERED: Ketamine In 0.9 % NaCl 50 MG/5 ML SYRINGE ONE (10:00)
== END 2025-06-10 11:43 | disposition home or self-care (01) ==
LOC: SDC 07:26
PROVIDERS: ATTEND Internal Medicine Gastroenterology
PROC: 0DB38ZX Excision of Lower Esophagus, Via Natural or Artificial Opening Endoscopic, Diagnostic (ICD-10-PCS; principal; 2025-06-10)
DX: C7A.1 Malignant poorly differentiated neuroendocrine tumors (principal); K44.9 Diaphragmatic hernia without obstruction or gangrene; I10 Essential (primary) hypertension; E78.00 Pure hypercholesterolemia, unspecified; E03.9 Hypothyroidism, unspecified; F41.9 Anxiety disorder, unspecified; J44.9 Chronic obstructive pulmonary disease, unspecified; R63.4 Abnormal weight loss; Z68.1 Body mass index [BMI] 19.9 or less, adult; Z98.49 Cataract extraction status, unspecified eye; Z87.891 Personal history of nicotine dependence; Z98.890 Other specified postprocedural states; Z79.890 Hormone replacement therapy; Z79.51 Long term (current) use of inhaled steroids; Z79.899 Other long term (current) drug therapy
CPT/HCPCS: 43239; J2704; J3490 ×2; 88305; 88341; 88342

== ENCOUNTER 2025-07-07 08:00 | Outpatient (CLI) | payer OTHER | END 2025-07-07 08:01 | disposition home or self-care (01) | LOC: PET 08:00 | PROVIDERS: ATTEND Internal Medicine | DX: C15.5 Malignant neoplasm of lower third of esophagus (principal); C79.51 Secondary malignant neoplasm of bone; C78.7 Secondary malignant neoplasm of liver and intrahepatic bile duct; K22.89 Other specified disease of esophagus | CPT/HCPCS: 78815; A9552 ==

== ENCOUNTER 2025-07-12 14:05 | Outpatient (CLI) | payer OTHER | END 2025-07-12 14:06 | disposition home or self-care (01) | LOC: BICMAMMO 14:05 | PROVIDERS: ATTEND Internal Medicine | DX: Z12.31 Encounter for screening mammogram for malignant neoplasm of breast (principal); Z80.3 Family history of malignant neoplasm of breast; Z85.05 Personal history of malignant neoplasm of liver | CPT/HCPCS: 77063; 77067 ==